=== PATIENT | male | born 1955 | race Asian ===

== ENCOUNTER 2019-05-20 09:22 | Outpatient (CLI) | payer OTHER ==
--- NOTE | 2019-05-20 15:47 | RAD ---
XR Chest Pa Lat STANDARD HISTORY: Preoperative evaluation COMPARISON: None FINDINGS: The heart size is mildly enlarged. A left-sided pacemaker device is seen with unipolar lead in the right ventricle. The lungs are well expanded without focal areas of consolidation, chelsie pulmonary edema, pneumothorax or pleural effusions. IMPRESSION: Cardiomegaly without overt CHF
== END 2019-05-20 09:23 | disposition home or self-care (01) ==
LOC: LABBT 09:22
PROVIDERS: ATTEND Internal Medicine Cardiovascular Disease
DX: Z01.818 Encounter for other preprocedural examination (principal); R94.39 Abnormal result of other cardiovascular function study; I51.7 Cardiomegaly
CPT/HCPCS: 71046; 93005; 93010

== ENCOUNTER → 2019-05-31 | Day surgery (SDC) | payer OTHER ==
[2019-05-20 14:19] VITALS: BMI 22.1
[~2019-05-31] MED LIST: Heparin 10,000 UNITS/1 ML VIAL ONE; Iopamidol 370 76% 100 ML VIAL ONE; Lidocaine 1% (PF) 30 ML VIAL ONE; Midazolam HCl 2 mg/2 ml Vial ONE; Nitroglycerin 100MG/250ML BOT 250 ML ONE; Verapamil 5 MG/2 ML VIAL ONE
--- NOTE | 2019-05-31 12:35 | RAD ---
Exam: Chest one view HISTORY:Preoperative exam. Comparison: 05/20/2019 FINDINGS: Cardiac silhouette:Cardiomegaly. Aorta: Atherosclerosis aorta Pacemaker: Stable single lead left-sided transvenous pacemaker Pulmonary vessels: Normal Costophrenic angles: Clear LUNGS: No masses or consolidation. Pneumothorax: None Osseous abnormalities: None IMPRESSION: 1. Atherosclerosis. 2. No acute cardiopulmonary process. 3. Cardiomegaly without evidence of congestive heart failure.
[2019-05-31 13:27] LABS: AST (SGOT) 25 U/L (5-34); Anion Gap 15 mmol/L (10-20); Bilirubin, Total 1.2 mg/dL (0.2-1.2); Calc. Creatinine Clearance 105 mL/min (70-130); Calcium 8.8 mg/dL (7.8-10.44); Carbon Dioxide 17 mmol/L (23-31); Chloride 111 mmol/L (98-107); Estimated GFR-MDRD Greater than 90; Potassium 4.3 mmol/L (3.5-5.1); Protein, Total 6.6 g/dL (5.8-8.1); Sodium 139 mmol/L (136-145)
[2019-05-31 13:29] LABS: #Eosinphils 0.2 thou/uL (0.0-0.7); #Lymphocytes 1.2 thou/uL (1.20-3.40); #Monocytes 0.4 thou/uL (0.11-0.59); #Neutrophils 2.9 thou/uL (1.40-6.50); %Basophils 0.5 % (0.0-1.0); %Eosinophils 4.4 % (0.0-10.0); %Lymphocytes 24.8 % (21.0-51.0); %Monocytes 8.6 % (0.0-10.0); %Neutrophils 61.7 % (42.0-75.0); Band 10 % (5-11); Eosinophils 1 % (0-10); Hemoglobin 15.3 g/dL (14.0-18.0); Lymphocytes 12 % (21-51); MDiff Complete? YES; Macrocytosis SLIGHT = 6-15 cells (100X) (0-5/hpf); Mean Corpuscular HGB CONC 33.3 g/dL (32.0-36.0); Mean Corpuscular Hemoglobin 31.7 pg (27.0-31.0); Mean Corpuscular Volume 95.2 fL (78.0-98.0); Mean Platelet Volume 9.3 fL (7.4-10.4); Monocytes 8 % (0-10); Neutrophil 55 % (42-75); Platelet Count 132 thou/uL (130-400); Platelet Morphology Comment Appears Adequate; Polychromasia SLIGHT = 2-3 cells (100X) (0-2/hpf); RBC Distribution Width 12.4 % (11.5-14.5); Reactive Lymphocytes 14 % (0-10); Red Blood Cell (RBC) Count 4.83 mill/uL (4.70-6.10); White Blood Cell (WBC) Count 4.6 thou/uL (4.8-10.8)
[2019-05-31 14:04] LABS: Albumin 3.8 g/dL (3.4-4.8); Globulin 2.8 g/dL (2.4-3.5)
[2019-05-31 14:07] LABS: Glucose 100 mg/dL (80-115)
[2019-05-31 14:10] LABS: Alkaline Phosphatase 63 U/L (40-110)
[2019-05-31 14:11] LABS: BUN (Urea Nitrogen) 12 mg/dL (8.4-25.7)
[2019-05-31 14:13] LABS: ALT (SGPT) 24 U/L (8-55)
--- NOTE | 2019-05-31 15:36 | OP ---
DATE OF PROCEDURE: 05/31/2019 INDICATION FOR PROCEDURE: A 64-year-old gentleman with severe cardiomyopathy, status post pacemaker insertion, chronic atrial fibrillation, complaining of chest pain. He was advised to undergo cardiac catheterization to rule out evidence of underlying coronary artery disease. DESCRIPTION OF PROCEDURE: He was taken to cardiac clam bed laborer, where he was prepped and draped in sterile fashion. Using a right radial artery approach, a #5 Russian introducer sheath was placed in the right radial artery using a #4 Russian JL3.5 catheter and also a 4-Russian JR4 catheter. These were used for the procedure. Impression are as follows; mild calcifications noted in the proximal left anterior descending artery, but no evidence of flow-limiting disease in mid section. The left anterior descending artery has plaque formation, but no flow-limiting disease. The left circumflex also is free of any significant flow-limiting disease. He has normal-sized vessels about the 3.0 to 3.5 mm vessels. The right coronary also is a dominant vessel, shows no evidence of stenosis. He has minimal plaque formation. The proximal area to the mid section does have calcifications noted on the radiographic films. The left ventriculogram shows ejection fraction approximately 20% to 25%. The left ventricle appears to be dilated. There was a pacemaker noted in the right ventricle, which appears to be attached to the septum. The patient tolerated the procedure well. There were no difficulties or complications encountered. He was given 1 mg of IV versed for conscious sedation. Throughout the procedure, remained stable. We did use a ultrasonic hand solderer monitor since he does not speak Thai and this went well without any problems. He was monitored throughout the procedure by an independent observer present for heart rate, blood pressure, and O2 saturation and he was given IV Versed. Impression is essentially minimal single-vessel coronary artery disease with calcifications with severe decrease in left ventricular systolic function, but no evidence of flow-limiting coronary artery disease. Job ID: [id number]
== END ==
LOC: CCL 11:11
PROVIDERS: ATTEND Internal Medicine Cardiovascular Disease
PROC: 4A023N7 Measurement of Cardiac Sampling and Pressure, Left Heart, Percutaneous Approach (ICD-10-PCS; principal; 2019-05-31)
PROC: B2111ZZ Fluoroscopy of Multiple Coronary Arteries using Low Osmolar Contrast (ICD-10-PCS; principal; 2019-05-31)
DX: R07.9 Chest pain, unspecified (principal); I48.0 Paroxysmal atrial fibrillation; I42.9 Cardiomyopathy, unspecified; I11.0 Hypertensive heart disease with heart failure; I50.22 Chronic systolic (congestive) heart failure; E78.00 Pure hypercholesterolemia, unspecified; Z95.0 Presence of cardiac pacemaker; Z79.01 Long term (current) use of anticoagulants; Z79.899 Other long term (current) drug therapy; Z87.891 Personal history of nicotine dependence
CPT/HCPCS: 36415; 71045; 80053; 85025; 93458; 99152; 99153; C1769; J1644; J2001; J2250; Q9967

== ENCOUNTER 2019-06-01 09:54 | Emergency (ER) | payer OTHER ==
[2019-06-01] MEDS ORDERED: Iopamidol 370 76% 100 ML VIAL ONE (10:02)
[2019-06-01] MEDS ORDERED: Aspirin Chewable 81 MG TAB ONE (10:55)
[2019-06-01] MEDS ORDERED: Nitroglycerin 2% Ointment 1 INCH/1 GM Packet ONE (10:55)
--- NOTE | 2019-06-01 11:34 | RAD ---
PORTABLE CHEST: HISTORY: Dyspnea, chest pain, and weakness. FINDINGS: Heart size is enlarged. A pacemaker is present. There are atherosclerotic changes of the aorta. Th e lungs are clear of infiltrates. There are no signs of failure. IMPRESSION: Cardiomegaly. POS: TPC
[2019-06-01 11:38] LABS: #Eosinphils 0.1 thou/uL (0.0-0.7); #Lymphocytes 0.9 thou/uL (1.20-3.40); #Monocytes 0.3 thou/uL (0.11-0.59); #Neutrophils 2.7 thou/uL (1.40-6.50); %Eosinophils 2.4 % (0.0-10.0); %Lymphocytes 21.9 % (21.0-51.0); %Monocytes 7.1 % (0.0-10.0); %Neutrophils 67.7 % (42.0-75.0); Hemoglobin 16.1 g/dL (14.0-18.0); Mean Corpuscular Hemoglobin 32.2 pg (27.0-31.0); Mean Corpuscular Volume 97.5 fL (78.0-98.0); Mean Platelet Volume 9.7 fL (7.4-10.4); Platelet Count 128 thou/uL (130-400); RBC Distribution Width 12.6 % (11.5-14.5); White Blood Cell (WBC) Count 3.9 thou/uL (4.8-10.8)
[2019-06-01 12:28] LABS: ALT (SGPT) 31 U/L (8-55); AST (SGOT) 34 U/L (5-34); Albumin 4.1 g/dL (3.4-4.8); Alkaline Phosphatase 67 U/L (40-110); Anion Gap 13 mmol/L (10-20); BUN (Urea Nitrogen) 13 mg/dL (8.4-25.7); Bilirubin, Total 1.2 mg/dL (0.2-1.2); Calc. Creatinine Clearance 0 mL/min (70-130); Calcium 9.1 mg/dL (7.8-10.44); Carbon Dioxide 22 mmol/L (23-31); Chloride 112 mmol/L (98-107); Estimated GFR-MDRD 89; Globulin 2.8 g/dL (2.4-3.5); Glucose 103 mg/dL (80-115); Potassium 4.7 mmol/L (3.5-5.1); Protein, Total 6.9 g/dL (5.8-8.1); Sodium 142 mmol/L (136-145)
--- NOTE | 2019-06-01 14:04 | CT ---
Exam: CT angiogram of the chest HISTORY: Chest pain. Left-sided chest tightness. Shortness of breath. Weakness. COMPARISON: None TECHNIQUE: CT angiogram of the chest is performed in the axial plane. Three-dimensional reformatted i mages are submitted for interpretation FINDINGS: Mediastinum: No mass, lymphadenopathy or hematoma. HEART: Marked cardiomegaly. There is a small amount of pericardial fluid. Reflux of contrast into the inferior vena cava and hepatic veins suggesting right heart failure. Aorta: Limited evaluation due to lack of contrast opacification. Atherosclerosis. No aneurysmal dilat ation. Upper solid abdominal viscera: No abnormality enhancement. Trachea and central bronchi: Patent Pleural spaces: No pleural effusion. Lung parenchyma: Dependent atelectatic changes. No consolidation. Nodules: Right lung: No suspicious masses or nodules Left lung: No suspicious masses or nodules Pneumothorax: None Osseous structures: No lytic or blastic lesions Pulmonary arteries: Adequate contrast opacification pulmonary arterial system to the level of segment al arteries. No filling defect to suggest pulmonary embolism IMPRESSION: 1. Dependent atelectatic changes. No suspicious masses or consolidation 2. Cardiomegaly. Right heart failure. 3. No evidence of pulmonary artery embolism to the level of the segmental arteries.
--- NOTE | 2019-06-06 15:12 | EKG ---
Test Reason : CP Blood Pressure : / mmHG Vent. Rate : 093 BPM Atrial Rate : 069 BPM P-R Int : 000 ms QRS Dur : 102 ms QT Int : 336 ms P-R-T Axes : 000 054 005 degrees QTc Int : 417 ms Atrial fibrillation Abnormal ECG Confirmed by LIBERTY SALAZAR DO ([id number]), medical transcription editor MIHIR RAMÍREZ ([id number]) on 06/06/2019 3:11:56 PM Referred By: TATE Confirmed By:LIBERTY SALAZAR DO
== END 2019-06-01 16:58 | disposition home or self-care (01) ==
LOC: ERS 09:54
DX: R07.89 Other chest pain (principal); I10 Essential (primary) hypertension; E11.9 Type 2 diabetes mellitus without complications; Z87.891 Personal history of nicotine dependence; Z79.01 Long term (current) use of anticoagulants; Z79.899 Other long term (current) drug therapy; Z79.84 Long term (current) use of oral hypoglycemic drugs
CPT/HCPCS: 36415; 71045; 71275; 80053; 83880; 84484; 85025; 85379; 93005; 96360; Q9967

== ENCOUNTER 2019-11-07 22:51 | Emergency (ER) | payer OTHER ==
[2019-11-07 23:24] LABS: #Basophils 0.1 thou/uL (0.0-0.2); #Eosinphils 0.2 thou/uL (0.0-0.7); #Lymphocytes 1.4 thou/uL (1.20-3.40); #Monocytes 0.5 thou/uL (0.11-0.59); %Basophils 1.5 % (0.0-1.0); %Lymphocytes 26.2 % (21.0-51.0); %Monocytes 9.9 % (0.0-10.0); %Neutrophils 58.4 % (42.0-75.0); Hemoglobin 16.5 g/dL (14.0-18.0); Mean Corpuscular HGB CONC 32.6 g/dL (32.0-36.0); Mean Corpuscular Hemoglobin 31.8 pg (27.0-31.0); Mean Corpuscular Volume 97.5 fL (78.0-98.0); Mean Platelet Volume 9.2 fL (7.4-10.4); Platelet Count 160 thou/uL (130-400); RBC Distribution Width 11.8 % (11.5-14.5); White Blood Cell (WBC) Count 5.2 thou/uL (4.8-10.8)
--- NOTE | 2019-11-07 23:27 | RAD ---
EXAM: Single view of the chest HISTORY: Chest pain COMPARISON: 06/01/2019 FINDINGS: Single view of the chest shows an enlarged but stable cardiomediastinal silhouette. Athero sclerotic calcifications are seen in the aorta. The pacemaker is unchanged in position. There is no evidence of consolidation, mass, or pleural effusion. No acute osseous abnormality. IMPRESSION: Stable cardiomegaly
[2019-11-08] MEDS ORDERED: Aspirin Chewable 81 MG TAB ONE (00:11)
[2019-11-08 00:43] LABS: Albumin 3.8 g/dL (3.4-4.8)
[2019-11-08 00:44] LABS: Chloride 109 mmol/L (98-107); Potassium 4.8 mmol/L (3.5-5.1); Sodium 135 mmol/L (136-145)
[2019-11-08 00:45] LABS: Calcium 8.4 mg/dL (7.8-10.44); Glucose 109 mg/dL (80-115)
[2019-11-08 00:46] LABS: Globulin 2.8 g/dL (2.4-3.5); Protein, Total 6.6 g/dL (5.8-8.1)
[2019-11-08 00:47] LABS: Anion Gap 12 mmol/L (10-20); Bilirubin, Total 0.8 mg/dL (0.2-1.2); Carbon Dioxide 19 mmol/L (23-31)
[2019-11-08 00:48] LABS: Alkaline Phosphatase 62 U/L (40-110)
[2019-11-08 00:49] LABS: BUN (Urea Nitrogen) 14 mg/dL (8.4-25.7); Calc. Creatinine Clearance 0 mL/min (70-130); Estimated GFR-MDRD 90
[2019-11-08 00:51] LABS: ALT (SGPT) 26 U/L (8-55); AST (SGOT) 25 U/L (5-34)
--- NOTE | 2019-11-09 11:56 | EKG ---
Test Reason : Blood Pressure : / mmHG Vent. Rate : 076 BPM Atrial Rate : 069 BPM P-R Int : 000 ms QRS Dur : 090 ms QT Int : 364 ms P-R-T Axes : 000 038 024 degrees QTc Int : 409 ms Atrial fibrillation Nonspecific T wave abnormality , probably digitalis effect Abnormal ECG Confirmed by PAWEL CROCKER ([id number]), greeting card editor CRYSTAL FORD ([id number]) on 11/09/2019 11:56:01 AM Referred By: Confirmed By:PAWEL CROCKER
== END 2019-11-08 01:04 | disposition home or self-care (01) ==
LOC: ERS 22:51
DX: I48.91 Unspecified atrial fibrillation (principal); E11.9 Type 2 diabetes mellitus without complications; I10 Essential (primary) hypertension; E78.5 Hyperlipidemia, unspecified; Z87.891 Personal history of nicotine dependence; Z79.01 Long term (current) use of anticoagulants; Z79.84 Long term (current) use of oral hypoglycemic drugs; Z79.899 Other long term (current) drug therapy
CPT/HCPCS: 36415; 71045; 80053; 83880; 84484; 85025; 93005

== ENCOUNTER 2020-02-04 22:19 | Observation (INO) | payer OTHER ==
--- NOTE | 2020-02-04 23:12 | RAD ---
Portable frontal chest radiograph: 02/04/2020 Comparison: 11/07/2019 HISTORY: Fatigue with chest pain FINDINGS: Stable prominence of the cardiac silhouette. Stable single lead transvenous pacing device i nserted via a left subclavian approach. No focal consolidation or alveolar edema. IMPRESSION: No acute findings-stable appearance of the chest.
[2020-02-04 23:17] LABS: #Basophils 0.1 thou/uL (0.0-0.2); #Eosinphils 0.2 thou/uL (0.0-0.7); #Lymphocytes 1.3 thou/uL (1.20-3.40); #Monocytes 0.4 thou/uL (0.11-0.59); #Neutrophils 2.4 thou/uL (1.40-6.50); %Basophils 1.8 % (0.0-1.0); %Eosinophils 3.8 % (0.0-10.0); %Lymphocytes 30.3 % (21.0-51.0); %Monocytes 8.8 % (0.0-10.0); %Neutrophils 55.3 % (42.0-75.0); Hemoglobin 15.3 g/dL (14.0-18.0); Mean Corpuscular HGB CONC 32.4 g/dL (32.0-36.0); Mean Corpuscular Hemoglobin 31.1 pg (27.0-31.0); Mean Corpuscular Volume 96.1 fL (78.0-98.0); Mean Platelet Volume 8.6 fL (7.4-10.4); Platelet Count 182 thou/uL (130-400); RBC Distribution Width 11.9 % (11.5-14.5); Red Blood Cell (RBC) Count 4.93 mill/uL (4.70-6.10); White Blood Cell (WBC) Count 4.3 thou/uL (4.8-10.8)
[2020-02-04 23:41] LABS: ALT (SGPT) 29 U/L (8-55); AST (SGOT) 23 U/L (5-34); Albumin 4.1 g/dL (3.4-4.8); Alkaline Phosphatase 71 U/L (40-110); Anion Gap 13 mmol/L (10-20); BUN (Urea Nitrogen) 12 mg/dL (8.4-25.7); Bilirubin, Total 0.7 mg/dL (0.2-1.2); Calc. Creatinine Clearance 0 mL/min (70-130); Calcium 8.8 mg/dL (7.8-10.44); Carbon Dioxide 25 mmol/L (23-31); Chloride 107 mmol/L (98-107); Estimated GFR-MDRD 86; Globulin 2.9 g/dL (2.4-3.5); Glucose 109 mg/dL (80-115); Potassium 4.2 mmol/L (3.5-5.1); Sodium 141 mmol/L (136-145)
[2020-02-04] MEDS ORDERED: Acetaminophen 325 MG TAB ONE (23:47)
[2020-02-04] MEDS ORDERED: Aspirin Chewable 81 MG TAB ONE (23:47)
[2020-02-04] MEDS ORDERED: Nitroglycerin 2% Ointment 1 INCH/1 GM Packet ONE (23:47)
[2020-02-05] MEDS ORDERED: Senokot S 8.6-50 MG TAB PO PRN (00:36)
[2020-02-05] MEDS ORDERED: Acetaminophen 325 MG TAB PO PRN (00:36)
--- NOTE | 2020-02-05 01:44 | PDOC.HHP ---
Hospitalist HPI - History of Present Illness Left sided chest pain and generalized weakness for 24 hours History of Present Illness: 64M presents to the ED for left sided intermittent chest pain and generalized weakness for over 24 hours. Reports symptoms started after taking his new medication, digoxin, which Dr. Bernal started him on in the last week. He denies calling Dr. Bernal and family at the bedside reports they just broke him to the ED for his symptoms. He denies other symptoms, and he denies having them currently. Patient had a cardiac cath in May 2019 which showed an enlarged ventricles but mild plaque in the mid LAD. Patient reports he is taking him medication as prescribed. Patient has a pacemaker which was not interrogated in the ED. First troponin was negative. He will be admitted for serial troponins and cardiology consult. ED Course: ED: WBC 4.3, troponin: negative; chemistry unremarkable Hospitalist ROS - Review of Systems Constitutional: denies: fever, chills, sweats, weakness, malaise, other Eyes: denies: pain, vision change, conjunctivae inflammation, eyelid inflammation, redness, other ENT: denies: ear pain, ear discharge, nose pain, nose discharge, nose congestion, mouth pain, mouth swelling, throat pain, throat swelling, other Respiratory: reports: shortness of breath Cardiovascular: reports: chest pain Gastrointestinal: denies: nausea, vomiting, abdominal pain, diarrhea, constipation, melena, hematochezia, other Genitourinary: denies: dysuria, frequency, incontinence, hematuria, retention, other Musculoskeletal: denies: neck pain, shoulder pain, arm pain, back pain, hand pain, leg pain, foot pain, other Neurological: reports: weakness - Medication Medications: Eliquis MonFeb 04, 2020 23:54 tablet : Strength - 5 mg : ORAL Patient Dose: 5 mg Oral 2 times a day. Lasix oral MonFeb 04, 2020:54 tablet : Strength - 40 mg : ORAL Patient Dose: 40 mg Oral once a day.every other day. atorvastatin MonFeb 04, 2020:54 tablet : Strength - 40 mg : ORAL Patient Dose: 40 mg Oral once a day. metFORMIN MonFeb 04, 2020 23:54 tablet : Strength - 850 mg : ORAL Patient Dose: 500 mg Oral once a day. tamsulosin MonFeb 04, 2020 23:54 capsule : Strength - 0.4 mg : ORAL Patient Dose: 0.4 mg Oral once a day. Entresto MonFeb 04, 2020 23:54 tablet : Strength - 24 mg-26 mg : ORAL Patient Dose: 1/2 tab(s) Oral 2 times a day. carvedilol MonFeb 04, 2020 23:54 tablet : Strength - 3.125 mg : ORAL Patient Dose: 3.125 mg Oral 2 times a day. digoxin oral MonFeb 04, 2020 23:54 tablet : Strength - 250 mcg : ORAL Patient Dose: 1 tab(s) Oral once a day (in the evening). Ergocal MonFeb 04, 2020 23:56 capsule : Strength - 2,500 unit : ORAL Patient Dose: 1.25 mg Oral once a week. Hospitalist History - Past Medical History Source: patient Cardiac: reports: AFIB, CAD, CHF, HTN, Hyperlipidemia, Other (ventricular enlargement) Pulmonary: reports: hypertension Endocrine: reports: Diabetes - Past Surgical History Past Surgical History: reports: Other (pacemaker placement) - Family History Family History: reports: no pertinent history - Social History Smoking Status: Former smoker Alcohol: reports: None Drugs: reports: none Living Situation: With Family Activity level: independent ambulation - Exam General Appearance: NAD, awake alert Eye: PERRL, anicteric sclera ENT: normocephalic atraumatic, moist mucosa Neck: supple, no JVD Heart: normal peripheral pulses, irregular Respiratory: CTAB, normal chest expansion Gastrointestinal: soft, non-tender Extremities: no edema Skin: normal turgor Neurological: cranial nerve grossly intact Musculoskeletal: normal tone Psychiatric: normal affect, A&O x 3 Hospitalist Results - Labs Result Diagrams: 02/04/20 22:57 02/04/20 22:57 Lab results: WBC 4.3 thou/uL (4.8-10.8) L 02/04/20 22:57 Hgb 15.3 g/dL (14.0-18.0) 02/04/20 22:57 Hct 47.4 % (42.0-52.0) 02/04/20 22:57 MCV 96.1 fL (78.0-98.0) 02/04/20 22:57 Plt Count 182 thou/uL (130-400) 02/04/20 22:57 Neutrophils % 55.3 % (42.0-75.0) 02/04/20 22:57 Sodium 141 mmol/L (136-145) 02/04/20 22:57 Potassium 4.2 mmol/L (3.5-5.1) 02/04/20 22:57 Chloride 107 mmol/L (98-107) 02/04/20 22:57 Carbon Dioxide 25 mmol/L (23-31) 02/04/20 22:57 BUN 12 mg/dL (8.4-25.7) 02/04/20 22:57 Creatinine 0.89 mg/dL (0.7-1.3) 02/04/20 22:57 Glucose 109 mg/dL (80-115) 02/04/20 22:57 Calcium 8.8 mg/dL (7.8-10.44) 02/04/20 22:57 Total Bilirubin 0.7 mg/dL (0.2-1.2) 02/04/20 22:57 AST 23 U/L (5-34) 02/04/20 22:57 ALT 29 U/L (8-55) 02/04/20 22:57 Alkaline Phosphatase 71 U/L (40-110) 02/04/20 22:57 Troponin I Less than 0.010 ng/mL (< 0.028) 02/04/20 22:57 Serum Total Protein 7.0 g/dL (5.8-8.1) 02/04/20 22:57 Albumin 4.1 g/dL (3.4-4.8) 02/04/20 22:57 - EKG Interpretation EKbpm, a fib with rate control, ST segments, t waves normal Hospitalist H&P A/P - Problem (1) Hypertension Code(s): I10 - ESSENTIAL (PRIMARY) HYPERTENSION Status: Chronic (2) Chest pain Code(s): R07.9 - CHEST PAIN, UNSPECIFIED Status: Acute (3) Afib Code(s): I48.91 - UNSPECIFIED ATRIAL FIBRILLATION Status: Chronic (4) Hyperlipemia Code(s): E78.5 - HYPERLIPIDEMIA, UNSPECIFIED Status: Chronic (5) Diabetes Code(s): E11.9 - TYPE 2 DIABETES MELLITUS WITHOUT COMPLICATIONS Status: Chronic (6) Pacemaker Code(s): Z95.0 - PRESENCE OF CARDIAC PACEMAKER Status: Chronic - Plan Plan: # Chest pain Cardiac Cath in 3/20 with mild plaque in LAD Serial troponins Continue Eliquis and Entresto Cardiology consult Pacemaker interrogation Digoxin level Restart home meds HTN/HLD/AFIB: home meds Diabetes: ACHS accuchecks; SS for coverage DVT prevention: on eliquis, will continue PUD prevention with pepcid 20mg BID
[2020-02-05] MEDS ORDERED: HumaLOG 300 UNITS/3 ML VIAL SC PRN ×2 (02:01)
[2020-02-05] MEDS ORDERED: Dextrose 50% Abboject 50 ML SYRINGE SLOW IVP PRN (02:01)
[2020-02-05] MEDS ORDERED: Dextrose 5% in Water 1,000 ML IV PRN (02:01)
[2020-02-05 02:37] VITALS: BMI 20.9
[2020-02-05 04:28] LABS: Digoxin 0.55 ng/mL (0.8-2.0)
[2020-02-05 05:21] LABS: Troponin I 0.016 ng/mL (< 0.028)
[2020-02-05 08:32] LABS: #Basophils 0.1 thou/uL (0.0-0.2); #Eosinphils 0.2 thou/uL (0.0-0.7); #Lymphocytes 1.6 thou/uL (1.20-3.40); #Monocytes 0.4 thou/uL (0.11-0.59); #Neutrophils 2.4 thou/uL (1.40-6.50); %Basophils 1.1 % (0.0-1.0); %Lymphocytes 33.9 % (21.0-51.0); %Monocytes 8.2 % (0.0-10.0); %Neutrophils 52.8 % (42.0-75.0); Hemoglobin 16.5 g/dL (14.0-18.0); Mean Corpuscular Hemoglobin 32.2 pg (27.0-31.0); Mean Corpuscular Volume 97.6 fL (78.0-98.0); Mean Platelet Volume 9.1 fL (7.4-10.4); Platelet Count 140 thou/uL (130-400); RBC Distribution Width 11.8 % (11.5-14.5); Red Blood Cell (RBC) Count 5.13 mill/uL (4.70-6.10); White Blood Cell (WBC) Count 4.6 thou/uL (4.8-10.8)
[2020-02-05 08:49] LABS: ALT (SGPT) 28 U/L (8-55); AST (SGOT) 21 U/L (5-34); Albumin 3.9 g/dL (3.4-4.8); Alkaline Phosphatase 72 U/L (40-110); Anion Gap 15 mmol/L (10-20); BUN (Urea Nitrogen) 10 mg/dL (8.4-25.7); Calc. Creatinine Clearance 86 mL/min (70-130); Calcium 8.7 mg/dL (7.8-10.44); Carbon Dioxide 22 mmol/L (23-31); Chloride 109 mmol/L (98-107); Estimated GFR-MDRD Greater than 90; Globulin 2.8 g/dL (2.4-3.5); Glucose 93 mg/dL (80-115); Protein, Total 6.7 g/dL (5.8-8.1); Sodium 142 mmol/L (136-145)
[2020-02-05 08:54] LABS: Troponin I 0.027 ng/mL (< 0.028)
[2020-02-05] MEDS ORDERED: Apixaban 5 MG TAB PO SCH (09:00)
[2020-02-05] MEDS ORDERED: Famotidine 20 MG TAB PO SCH (09:00)
[2020-02-05] MEDS ORDERED: Atorvastatin Calcium 40 MG TAB PO SCH (09:00)
[2020-02-05] MEDS ORDERED: FLU VACC QS2020-21(6MOS UP)/PF 60 MCG/0.5 ML SYRINGE IM ONE (09:00)
[2020-02-05 09:11] LABS: SARS-CoV-2 MS2 Positive; SARS-CoV-2 N Gene Negative; SARS-CoV-2 S Gene Negative; SARS-CoV-2 by NAA Not Detected (NotDetected); SARS-CoV-2 orf1ab Negative
[2020-02-05] MEDS ORDERED: Nitroglycerin 0.4 MG TAB (25 Tab Bottle) SL PRN (15:06)
[2020-02-05] MEDS ORDERED: Aspirin 81 mg Enteric Coated Tablet PO SCH (15:15)
--- NOTE | 2020-02-05 17:08 | PDOC.DS.DS ---
Provider - Provider Date of Admission: 02/04/20 23:54 Date of Discharge: 02/05/20 Admitting Provider: Scott Merino Consultations: Cardiology (Dr. Fierro), Gastroentrology (Dr. Snow) Primary Care Physician: Chente Dowling Course - Hospital Course Hospital Course: Discharge Diagnoses: 1. Chest pain possibly secondary to GERD vs angina 2. Mild CAD 3. Hypertension Brief HPI: This is a 64-year-old male who presented to the emergency room with chest pain. Patient reported that he has been having chest pain for the past 3 months. He states that he is able to exercise without chest pain but whenever he finishes exercise he will usually get chest pain that would last about 15 seconds. However the last 2 days his chest pain lasted an hour. His chest pain was on the left side, squeezing sensation, nonradiating to his arm or neck. He also reported associated shortness of breath and a strange sensation in his head so he came to the emergency room for further work-up. EKG showed atrial fibrill ation Hospital Course: Chest pain: possibly GERD vs angina. - Patient had 3 sets of troponins which were normal. Cardiology was consulted. The patient had a catheterization earlier this year which showed insignificant CAD. GI was consulted and recommended starting Protonix. They did not recommend any EGD. Patient ambulated to the bathroom without any chest pain on the day of discharge. He will be discharged with aspirin in the event that he may have some angina. He should take nitroglycerin as needed for chest pain. He will also be discharged with Protonix. He should follow-up with his primary care doctor in a week. Of note, a Lithuanian bag patcher was used during the encounter. Atrial fibrillation: Patient will be continued on his Eliquis. He was recently started on digoxin 2 days ago. This is a chronic problem and not new onset Pertinent Studies: Chest X ray 02/03:no acute findings - Labs Lab Results: 02/05/20 08:05 02/05/20 08:05 Abnormal Lab Results - Last 48 hrs 02/04/20 22:57: WBC 4.3 L, MCH 31.1 H, Basophils % 1.8 H 02/05/20 01:34: Digoxin 0.55 L 02/05/20 08:05: Chloride 109 H, Carbon Dioxide 22 L 02/05/20 08:05: WBC 4.6 L, MCH 32.2 H, Basophils % 1.1 H - Physical Exam Vitals: Vital Signs (12 hours) Temp Pulse Resp BP Pulse Ox 02/05/20 12:20 98.2 F 81 16 115/73 96 02/05/20 07:40 97.3 F L 62 16 127/84 97 Weight Weight 142 lb Physical Exam: The patient was seen and examined on the day of discharge. General: patient alert, awake, oriented times three CV: RRR, no murmurs, rubs, gallops Lungs: CTAB Abdomen: +BS, soft, nontender, nondistended Extremities: no edema Problem - Discharge Plan Plan of Treatment: With her PCP and clipping marker in a week - Time spent with Patient (mins): 35 Plan - Discharge Medications Prescriptions: Aspirin [Ecotrin Low Strength] 81 mg PO DAILY #30 tab Pantoprazole [Protonix] 40 mg PO DAILY #30 tab Home Medications: Medication Instructions Recorded Confirmed Type Apixaban [Eliquis] 1 tab PO BID 05/20/19 02/05/20 History Atorvastatin Calcium 1 tab PO DAILY 05/20/19 02/05/20 History Cholecalciferol (Vitamin D3) 25 mcg PO DAILY 05/20/19 02/05/20 History [Vitamin D] Furosemide 40 mg PO ASDIR 05/20/19 02/05/20 History Nitroglycerin [Nitrostat] 0.4 mg SL Q5MIN PRN 05/20/19 02/05/20 History Potassium Chloride 1 tab PO DAILY 05/20/19 02/05/20 History Sacubitril/Valsartan [Entresto 24 1 tab PO BID 05/20/19 02/05/20 History mg-26 mg Tablet] Tamsulosin HCl [Flomax] 0.4 mg PO DAILY 05/20/19 02/05/20 History metFORMIN [Glucophage] 500 mg PO QAM-WM 05/20/19 02/05/20 History Aspirin [Ecotrin Low Strength] 81 mg PO DAILY #30 tab 02/05/20 Rx Digoxin [Lanoxin] 0.25 mg PO DAILY 02/05/20 02/05/20 History Pantoprazole [Protonix] 40 mg PO DAILY #30 tab 02/05/20 Rx Allergies: No Known Allergies Allergy (Verified 02/05/20 03:28) - Discharge Instructions Activity:: Activity as Tolerated Nourishment:: Heart Healthy Diet - Follow up Plan Referrals: Chente Dowling MD [Primary Care Provider] - Disposition: HOME Quality - Care Measures CORE MEASURES:: N/A
--- NOTE | 2020-02-05 17:49 | CON ---
DATE OF CONSULTATION: HISTORY OF PRESENT ILLNESS: Pio Shea is a 64-year-old Ukrainian male, who has been followed by Dr. Bernal since March 2019. He had a pacemaker placed in 2009 and had been seen numerous times in emergency room for chest pain in [place] and [place] and also at the [facility]. He moved to this area from [place] last year. In May 2019, he underwent Lexiscan Cardiolite testing, which revealed ejection fraction of 39%. There was ischemia in the anterior apical region. He underwent cardiac catheterization by Dr. Bernal, which revealed an ejection fraction of approximately 20% and he had a calcification in the LAD and in the proximal right coronary artery, but no significant stenosis. He was placed on a LifeVest as well as appropriate heart failure medication and a repeat echocardiogram in October 2019 revealed ejection fraction of 40% to 45% with biatrial enlargement, moderate mitral regurgitation, and severe tricuspid regurgitation. He was most recently seen in the office on January 28, 2020, and EKG showed a resting heart rate of 125 per minute. His blood pressure was 102/68, and the carvedilol was not further increased, but he was placed on digoxin 0.25 daily. He now presents complaining of 1 hour of mild left-sided chest discomfort. The pain is not pleuritic in nature. He denies any significant shortness of breath. Translation is provided by a program that he has on his phone that translates from [place] to Ukrainian and Ukrainian to [place]. PAST MEDICAL HISTORY: Chronic atrial fibrillation, mild coronary artery disease, nonischemic cardiomyopathy with most recent ejection fraction of 40% to 45%, hypertension, diabetes, and hyperlipidemia. PAST SURGICAL HISTORY: Pacemaker insertion. MEDICATIONS: 1. Eliquis 5 mg b.i.d. 2. Atorvastatin 40 daily. 3. Flomax 0.4 mg daily. 4. Metformin 500 mg daily. 5. Nitroglycerin p.r.n. 6. Carvedilol 3.125 daily. 7. Entresto / b.i.d. 8. Digoxin 0.25 daily. ALLERGIES: NONE. SOCIAL HISTORY: He smoked in the past. PHYSICAL EXAMINATION: VITAL SIGNS: Blood pressure 140/92 and pulse of 62. HEENT: PERRL. NECK: Supple. CHEST: Clear. CARDIAC: S1 and S2 normal without any S3, S4, or murmurs. ABDOMEN: Normal bowel sounds without tenderness or organomegaly. EXTREMITIES: Revealed no clubbing, cyanosis, or edema. NEUROLOGIC: Grossly intact. SKIN: Warm and dry. LABORATORY DATA: EKG revealed atrial fibrillation without any acute changes. Digoxin level 0.55, which is low. Hemoglobin 16.5, hematocrit 50.0, white count 4600, and platelets 140,000. Sodium 142, potassium 4.0, chloride 109, carbon dioxide 22, BUN 10, and creatinine 0.80. Troponin I is normal x3. IMPRESSION: 1. Probable noncardiac chest pain. He had a cardiac catheterization eight months ago without significant disease and now had 1 hour of continual chest discomfort, but totally normal cardiac enzymes. Also, he had a false-positive Cardiolite prior to his catheterization, so I do not feel that a Cardiolite testing would be of any value. 2. Nonischemic cardiomyopathy with ejection fraction of 20% at time of catheterization in May 2019. He wore a LifeVest and with appropriate medications, his ejection fraction improved to 40% to 45%. 3. Status post pacemaker placement in 2009. This is a single-chamber device. 4. Hypertension. 5. Hyperlipidemia. 6. Diabetes. 7. History of cerebrovascular accident in 2012. PLAN: Digoxin will be restarted. I do not feel any further cardiac evaluation is warranted. Another evaluation for the cause of his chest pain should be entertained. Job ID: [id number]
[2020-02-05 18:52] VITALS: BP 148/77; TEMP 97.8
--- NOTE | 2020-02-06 06:59 | CON ---
DATE OF CONSULTATION: 02/05/2020 REASON FOR CONSULTATION: Chest pain and negative cardiac workup. HISTORY OF PRESENT ILLNESS: Pio Shea is a 64-year-old Turkmen male with chest pain, which started yesterday. The patient has history of coronary artery disease, status post stent placement in the past. as his recent cardiogram showed very minimal occlusion. The patient had acute chest pain and pain over the epigastric area. The patient came to the ER and Cardiology deferred this is noncardiac. The patient's pain is better today, but it was a lot worse yesterday. The pain is worse with walking around. Deep breathing does not make it worse. He had no similar episodes in the past. No history of recent trauma. CK and cardiac enzymes are negative. I was asked to see the patient because of his chest pain. The patient was interviewed along with the ear machine operator service. The patient denies abdominal pain, heartburn, or indigestion. Pain in the precordial area. There are no other GI symptoms recorded. No abdominal pain. No nausea or vomiting. Bowels are regular. No hematochezia or melena. He had no similar episodes in the past. He had no fever, coughing. The pain is more like a soreness over the precordial area. He has no heartburn. No dysphagia or odynophagia. No relevant symptoms. ALLERGIES: NONE. SOCIAL HISTORY: The patient does not smoke or drink alcohol. MEDICAL ILLNESSES: 1. Status post pacemaker insertion. 2. Recent cardiac cath showing mild coronary artery disease and the chest pain is felt to be noncardiac at the present time. 3. Hypertension. 4. Atrial fibrillation. 5. Diabetes mellitus. MEDICATIONS: List reviewed, which include; 1. Atorvastatin. 2. Metformin. 3. Tamsulosin. 4. Entresto. 5. Carvedilol. 6. Digoxin. 7. Ergocalciferol. 8. Eliquis 5 mg twice a day. 9. Lasix 40 mg once a day. SURGERIES: 1. Pacemaker implant. 2. History of cardiac cath, minimal coronary artery disease and no other major surgeries. REVIEW OF SYSTEMS: A 10-point systems are totally nonrelevant. PHYSICAL EXAMINATION: GENERAL: He is thin built, appears very comfortable. He is awake, alert, and oriented. No distress. VITAL SIGNS: Stable. Afebrile, pulse is 81, and blood pressure 115/73. HEENT: Conjunctivae are clear. CARDIOVASCULAR SYSTEM: Normal heart sounds. LUNGS: Clear to auscultation. ABDOMEN: Soft. No organomegaly. No tenderness. No masses. He has mild minimal chest wall tenderness over the precordial area. EXTREMITIES: Reveal no edema. LABORATORY DATA: WBC 4600, hemoglobin 16.5, hematocrit 50, MCV 97.6, platelet count is 140,000, polymorphs 52, lymphocytes 33, and monocytes 8. Chemistry panel normal lytes. BUN is 10, creatinine 0.80, glucose is 152, calcium 8.7, bilirubin , AST 21, ALT 28, and alkaline phosphatase 72. Troponin 0.027. Albumin 3.9. CLINICAL IMPRESSION: 1. A 64-year-old Turkmen male with chest pain, which appears noncardiac . The pain is possibly musculoskeletal. I do not think he has any GI symptoms to warrant any GI workup. 2. Hypertension. 3. Diabetes mellitus. 4. Prostatic hypertrophy. 5. Status post pacemaker implant. RECOMMENDATION: May try the patient on pantoprazole 40 once a day and can go home on pantoprazole. The patient will see his primary care doctor in the future if abdominal pain persists, he will come back to see me. Job ID: [id number]
[2020-02-06] MEDS ORDERED: Aspirin 81 mg Enteric Coated Tablet PO SCH (09:00)
[2020-02-06] MEDS ORDERED: Digoxin 0.25 MG TAB PO SCH (09:00)
== END 2020-02-05 18:35 | disposition home or self-care (01) ==
LOC: ERS 22:19 → 2NO 23:54
PROVIDERS: ADMIT Internal Medicine; ATTEND Internal Medicine
DX: R07.89 Other chest pain (principal); I25.10 Atherosclerotic heart disease of native coronary artery without angina pectoris; I11.0 Hypertensive heart disease with heart failure; I50.9 Heart failure, unspecified; E11.9 Type 2 diabetes mellitus without complications; E78.5 Hyperlipidemia, unspecified; I48.20 Chronic atrial fibrillation, unspecified; I42.8 Other cardiomyopathies; Z79.01 Long term (current) use of anticoagulants; Z79.84 Long term (current) use of oral hypoglycemic drugs; Z79.899 Other long term (current) drug therapy; Z87.891 Personal history of nicotine dependence; Z95.0 Presence of cardiac pacemaker; Z86.73 Personal history of transient ischemic attack (TIA), and cerebral infarction without residual deficits; Z20.828 Contact with and (suspected) exposure to other viral communicable diseases
CPT/HCPCS: 36415; 36416; 71045; 80053; 80162; 84484; 85025; 87635; 90471; 90662; 93005; G0008; G0378; U0003

== ENCOUNTER 2020-03-05 17:47 | Inpatient (IN) | payer OTHER ==
[2020-03-05 18:47] LABS: #Eosinphils 0.1 thou/uL (0.0-0.7); #Lymphocytes 1.3 thou/uL (1.20-3.40); #Monocytes 0.5 thou/uL (0.11-0.59); #Neutrophils 3.3 thou/uL (1.40-6.50); %Basophils 0.9 % (0.0-1.0); %Lymphocytes 24.7 % (21.0-51.0); %Monocytes 8.8 % (0.0-10.0); %Neutrophils 63.6 % (42.0-75.0); Mean Corpuscular HGB CONC 32.7 g/dL (32.0-36.0); Mean Corpuscular Hemoglobin 30.9 pg (27.0-31.0); Mean Corpuscular Volume 94.4 fL (78.0-98.0); Mean Platelet Volume 8.5 fL (7.4-10.4); Platelet Count 158 thou/uL (130-400); RBC Distribution Width 11.5 % (11.5-14.5); Red Blood Cell (RBC) Count 5.19 mill/uL (4.70-6.10); White Blood Cell (WBC) Count 5.1 thou/uL (4.8-10.8)
--- NOTE | 2020-03-05 18:59 | CT ---
CT BRAIN NONCONTRAST: DATE: 03/05/2020 HISTORY: 64-year-old male with dizziness and headache FINDINGS: There is no evidence of acute intra-axial or extra-axial hemorrhage. There is no midline shift or any other mass effect. There is no extra-axial fluid collection. There is no evidence of obstructive hydrocephalus. Calvarium is intact. IMPRESSION: No acute intracranial findings.
[2020-03-05 19:08] LABS: ALT (SGPT) 34 U/L (8-55); AST (SGOT) 28 U/L (5-34); Albumin 4.3 g/dL (3.4-4.8); Alkaline Phosphatase 80 U/L (40-110); Anion Gap 14 mmol/L (10-20); BUN (Urea Nitrogen) 9 mg/dL (8.4-25.7); Bilirubin, Total 0.9 mg/dL (0.2-1.2); CK (CPK) 100 U/L (30-200); Calc. Creatinine Clearance 0 mL/min (70-130); Calcium 9.3 mg/dL (7.8-10.44); Carbon Dioxide 27 mmol/L (23-31); Chloride 102 mmol/L (98-107); Globulin 3.1 g/dL (2.4-3.5); Glucose 132 mg/dL (80-115); Potassium 4.2 mmol/L (3.5-5.1); Protein, Total 7.4 g/dL (5.8-8.1); Sodium 139 mmol/L (136-145)
--- NOTE | 2020-03-05 19:14 | RAD ---
RADIOGRAPH CHEST 1 VIEW: DATE: 03/05/2020 HISTORY: 64-year-old male with chest pain and dyspnea FINDINGS: There is cardiomegaly. There is no evidence of airspace density, pulmonary edema, or pneumothorax. Th e lateral costophrenic angles are not effaced. No pulmonary venous engorgement. Single lead permanent pacemaker with left-sided generator. IMPRESSION: 1) No acute pulmonary findings. 2) cardiomegaly without congestive heart failure.
[2020-03-05] MEDS ORDERED: Acetaminophen 500 MG TAB ONE (19:44)
[2020-03-05] MEDS ORDERED: Aspirin Chewable 81 MG TAB ONE (21:22)
[2020-03-05] MEDS ORDERED: Dextrose 5% in Water 1,000 ML IV PRN (21:43)
[2020-03-05] MEDS ORDERED: Dextrose 50% Abboject 50 ML SYRINGE SLOW IVP PRN (21:43)
--- NOTE | 2020-03-05 21:47 | PDOC.HHP ---
Hospitalist HPI - History of Present Illness chest pain History of Present Illness: 4-year-old male patient with a history of diabetes mellitus, carotid artery disease with stent, atrial fibrillation on Eliquis, CHF who presents with intermittent chest pain and headaches about an hour prior to arrival. Pain is intermittent above-intensity nonradiating and moved from the left to the right side of his chest. Pain is dull, nonexertional. He denies any associated shortness of breath or palpitations. He notes mild worsening of swelling of his feet bilaterally. At the time of my evaluation patient noted this chest pain prior to stop. Headaches have also improved and very mild. Of note he was admitted and discharged on 02/05/2020 on account of chest pain however was deemed to be noncardiac. He was evaluated by GI and placed on Protonix. He had cardiac catheterization on 06/03/2019 EF of about 20%, however is not clear whether he had stent placement then. At presentation blood pressure was 157/83, pulse was 51, temperature, respiratory rate 15 and saturating 95% on room air. CBC and BMP were essentially within normal limits. BNP was slightly elevated at 125. Initial troponin was within normal limits. D-dimer was 0.27. Chest x-ray noted no acute event besides cardiomegaly which was stable. EKG showed paced rhythm with no concerning S T-segment T wave changes. CT scan of his head showed no acute intracranial events. He was given 324 mg aspirin and Tylenol. His pacemaker was interrogated which noted episodes of severe tachycardia to the 180s and bradycardia. Heart rate monitored in the ED had bradycardia at times in the 30s. This was concerningcalled for admission and possible EP evaluation. Hospitalist ROS - Review of Systems Constitutional: reports: weakness. denies: fever, chills, sweats, malaise Respiratory: reports: cough, dry, shortness of breath, SOB with excertion. denies: hemoptysis Cardiovascular: reports: chest pain, edema. denies: palpitations, orthopnea, paroxysmal noc. dyspnea Gastrointestinal: denies: nausea, vomiting, abdominal pain Genitourinary: denies: dysuria, frequency, incontinence Musculoskeletal: denies: neck pain, shoulder pain, arm pain Neurological: reports: other (Increasing forgetfulness.). denies: weakness, numbness, incoordination All other systems reviewed; all pertinent +/- noted in HPI/Subj - Medication Medications: Medications: Can refer to ambulatory drug list. Allergies: No known drug allergies Hospitalist History - Past Medical History Cardiac: reports: AFIB, CAD, CHF Endocrine: reports: Diabetes - Past Surgical History Past Surgical History: reports: Other (pacemaker placement) Other Surgical History: Pacemaker placement. - Family History Family History: reports: no pertinent history - Social History Smoking Status: Former smoker Alcohol: reports: None Drugs: reports: none Living Situation: With Family - Exam General Appearance: awake alert General - other findings: Not in acute distress. Eye: PERRL, anicteric sclera Neck: supple, symmetric, no JVD Heart: RRR, no murmur, no gallops, no rubs Respiratory: CTAB, no wheezes, no rales, no ronchi Gastrointestinal: soft, non-tender, non-distended, normal bowel sounds, no palpable masses Extremities: no cyanosis, no clubbing, 1+ LE edema Neurological: cranial nerve grossly intact, normal sensation to touch, no focal deficits Psychiatric: normal affect, normal behavior, A&O x 3 Hospitalist Results - Labs Result Diagrams: 03/05/20 18:37 03/05/20 18:37 Lab results: WBC 5.1 thou/uL (4.8-10.8) 03/05/20 18:37 Hgb 16.0 g/dL (14.0-18.0) 03/05/20 18:37 Hct 49.0 % (42.0-52.0) 03/05/20 18:37 MCV 94.4 fL (78.0-98.0) 03/05/20 18:37 Plt Count 158 thou/uL (130-400) 03/05/20 18:37 Neutrophils % 63.6 % (42.0-75.0) 03/05/20 18:37 Sodium 139 mmol/L (136-145) 03/05/20 18:37 Potassium 4.2 mmol/L (3.5-5.1) 03/05/20 18:37 Chloride 102 mmol/L (98-107) 03/05/20 18:37 Carbon Dioxide 27 mmol/L (23-31) 03/05/20 18:37 BUN 9 mg/dL (8.4-25.7) 03/05/20 18:37 Creatinine 0.98 mg/dL (0.7-1.3) 03/05/20 18:37 Glucose 132 mg/dL (80-115) H 03/05/20 18:37 Calcium 9.3 mg/dL (7.8-10.44) 03/05/20 18:37 Total Bilirubin 0.9 mg/dL (0.2-1.2) 03/05/20 18:37 AST 28 U/L (5-34) 03/05/20 18:37 ALT 34 U/L (8-55) 03/05/20 18:37 Alkaline Phosphatase 80 U/L (40-110) 03/05/20 18:37 Creatine Kinase 100 U/L (30-200) 03/05/20 18:37 Troponin I 0.024 ng/mL (< 0.028) 03/05/20 18:37 B-Natriuretic Peptide 125.3 pg/mL (0-100) H 03/05/20 18:37 Serum Total Protein 7.4 g/dL (5.8-8.1) 03/05/20 18:37 Albumin 4.3 g/dL (3.4-4.8) 03/05/20 18:37 Hospitalist H&P A/P - Plan Plan: This is a 64-year-old male patient with history of A. fib on apixaban, CHF with reduced EF, carotid artery disease who presents with intermittent chest pain and headaches. Initial evaluation notes persistent bradycardia with tachycardia noted on pacemaker interrogation. Chest pain Atypical features with no elevated troponin Pain resolved with aspirin and Tylenol. Continue aspirin trend troponin Cardiology evaluation the morning Had cardiac catheterization in the past year. Keep n.p.o. overnight. Possible sick sinus syndrome. Patient having bradycardia and tachycardia Consult cardiology/aphasic Monitor on telemetry. Coronary disease Continue home medications once verified. CHF Not in acute exacerbation Continue home Lasix and guideline directed medications. A. fib Not in RVR Continue apixaban Headaches Resolved with Tylenol Nothing seen on CT head Continue monitoring. CODE STATUSfull code VTE prophylaxisapixaban
[2020-03-05 22:01] LABS: Troponin I 0.018 ng/mL (< 0.028)
[2020-03-05] MEDS ORDERED: Furosemide 40 MG TAB PO SCH (23:00)
[2020-03-05] MEDS ORDERED: Ondansetron ODT 4 MG TAB SL PRN (23:30)
[2020-03-05] MEDS ORDERED: Ondansetron PF 4 MG/2 ML Vial IVP PRN (23:30)
[2020-03-06] MEDS: Furosemide 40 MG TAB PO SCH ×3 (01:16→13:18)
[2020-03-06 02:05] LABS: Troponin I 0.021 ng/mL (< 0.028)
[2020-03-06 02:38] VITALS: BMI 23.1
[2020-03-06 04:46] LABS: #Basophils 0.1 thou/uL (0.0-0.2); #Eosinphils 0.1 thou/uL (0.0-0.7); #Lymphocytes 1.5 thou/uL (1.20-3.40); #Monocytes 0.6 thou/uL (0.11-0.59); #Neutrophils 3.4 thou/uL (1.40-6.50); %Eosinophils 1.6 % (0.0-10.0); %Lymphocytes 26.5 % (21.0-51.0); %Monocytes 10.2 % (0.0-10.0); %Neutrophils 60.6 % (42.0-75.0); Hemoglobin 15.3 g/dL (14.0-18.0); Mean Corpuscular HGB CONC 31.9 g/dL (32.0-36.0); Mean Corpuscular Hemoglobin 30.3 pg (27.0-31.0); Mean Corpuscular Volume 95.1 fL (78.0-98.0); Platelet Count 163 thou/uL (130-400); RBC Distribution Width 11.5 % (11.5-14.5); Red Blood Cell (RBC) Count 5.04 mill/uL (4.70-6.10); White Blood Cell (WBC) Count 5.6 thou/uL (4.8-10.8)
[2020-03-06 05:07] LABS: Anion Gap 14 mmol/L (10-20); BUN (Urea Nitrogen) 11 mg/dL (8.4-25.7); Calc. Creatinine Clearance 85 mL/min (70-130); Calcium 8.8 mg/dL (7.8-10.44); Carbon Dioxide 23 mmol/L (23-31); Chloride 105 mmol/L (98-107); Glucose 127 mg/dL (80-115); Potassium 3.7 mmol/L (3.5-5.1); Sodium 138 mmol/L (136-145)
[2020-03-06] MEDS: Apixaban 5 MG TAB PO SCH ×2 (08:19→20:29)
[2020-03-06] MEDS: Atorvastatin Calcium 40 MG TAB PO SCH (08:19)
[2020-03-06] MEDS ORDERED: Aspirin Chewable 81 MG TAB PO SCH (09:00)
[2020-03-06 09:48] LABS: Hemoglobin 16.4 g/dL (14.0-18.0); Platelet Count 150 thou/uL (130-400)
[2020-03-06 12:51] LABS: SARS-CoV-2 MS2 Positive; SARS-CoV-2 N Gene Negative; SARS-CoV-2 S Gene Negative; SARS-CoV-2 by NAA Not Detected (NotDetected); SARS-CoV-2 orf1ab Negative
--- NOTE | 2020-03-06 15:28 | CON ---
DATE OF CONSULTATION: CONSULTING PHYSICIAN: Reese Kaufman MD HISTORY OF PRESENT ILLNESS: The patient is a 64-year-old gentleman with a history of mild coronary artery disease and atrial fibrillation, who presented with left-sided chest discomfort. The patient was seen initially in in May of 2019, and underwent a cardiac catheterization. He was found to have mild coronary artery disease with a 20% mild LAD lesion. He was found to have a severe decrease in left ventricular systolic function. The patient was placed on Entresto and Coreg. The patient had improvement in his left ventricular systolic function. He was found to have only a mild decrease of 40% to 45%. The patient presented with chest pain in January of this year and he was found to have atrial fibrillation with a rapid ventricular response. He once again had developed left-sided chest discomfort. The patient was felt to have probably noncardiac chest pain. The patient presents once again with chest discomfort. He states it is in the left side of his chest and goes to the middle of his chest. The patient also has history of an electronic ventricular pacemaker. The patient denies having any present chest discomfort. PAST MEDICAL HISTORY: 1. Mild coronary artery disease. 2. History of cardiomyopathy. 3. Atrial fibrillation. 4. Pacemaker placement. 5. Congestive heart failure. PAST SURGICAL HISTORY: None. SOCIAL HISTORY: Former smoker. ALLERGIES: NO KNOWN DRUG ALLERGIES. MEDICATIONS: 1. Coreg 3.125 b.i.d. 2. Digoxin 0.25 daily. 3. Entresto 4. Protonix 40 daily. 5. Glucophage 500 b.i.d. 6. Flomax 0.4 daily. 7. Eliquis 5 mg p.o. b.i.d. 8. Lipitor 40 at bedtime. REVIEW OF SYSTEMS: Ten-point system otherwise unremarkable. No history of bruising or bleeding or bright red blood per rectum. PHYSICAL EXAMINATION: GENERAL: A well-developed gentleman, in no acute distress. VITAL SIGNS: Blood pressure 118/74. NECK: No jugular venous distention. LUNGS: Clear to auscultation. HEART: Irregular rate and rhythm. Normal S1 and S2. No murmurs. ABDOMEN: Nondistended. EXTREMITIES: Show no edema. VASCULAR: Radial pulses are 2+. LABORATORY RESULTS: White blood cell count 5.6, hemoglobin 15.3, hematocrit 48.0, and his platelet are 163. Sodium was 138, potassium 3.7, chloride 105, bicarbonate 23, BUN 11, creatinine 0.89, and glucose is 120. Troponin 0.021. BNP 125. His EKG revealed an electronic ventricular pacemaker. Telemetry monitoring rapid atrial fibrillation with rate of approximately 180. IMPRESSION: 1. Chest pain, possibly due to a rapid atrial fibrillation. 2. Paroxysmal atrial fibrillation. 3. History of mild coronary artery disease. 4. History of cardiomyopathy. 5. Hypertension. 6. History of pacemaker placement. PLAN: This gentleman presents with chest discomfort. He has episodes of very rapid atrial fibrillation on interrogation of his pacemaker. I will start the patient on antiarrhythmic therapy with his history of a cardiomyopathy. We would recommend he will be taking Multaq. We will monitor the patient on telemetry to see his response to this medication. I would recommend discontinuing his Lasix. We will follow this patient with you through his hospitalization. Job ID: [id number] TRISTAN
[2020-03-06] MEDS: Carvedilol 3.125 MG TAB PO SCH (16:04)
[2020-03-06] MEDS: Dronedarone HCl 400 MG TAB PO SCH (16:04)
--- NOTE | 2020-03-06 16:33 | PDOC.HOSPP ---
- Subjective Encounter Date: 03/06/20 Encounter Time: 10:00 Subjective: patient seen on f/u for chest pain. patient reports intermittent 3/10 pain associated with palpitations but where not present during my evaluation. patient currently denies sob or palpitations, does report does with the episode of chest pain. - Objective Vital Signs & Weight: Vital Signs (12 hours) Temp Pulse Resp BP Pulse Ox 03/06/20 15:54 97.8 F 55 L 17 147/81 H 97 03/06/20 13:06 61 118/74 03/06/20 11:27 97.7 F 56 L 17 114/68 96 03/06/20 07:26 97.7 F 57 L 15 120/70 96 Weight Weight 156 lb 12.8 oz I&O: 03/05/20 03/06/20 03/07/20 06:59 06:59 06:59 Intake Total 120 Balance 120 Result Diagrams: 03/06/20 09:36 03/06/20 03:47 Hospitalist ROS - Review of Systems All other systems reviewed; all pertinent +/- noted in HPI/Subj - Medication Medications: Active Medications Generic Name Dose Route Start Last Admin Trade Name Freq PRN Reason Stop Dose Admin Apixaban 5 mg 03/06/20 09:00 03/06/20 08:19 Apixaban 5 Mg Tab PO 5 mg BID GABRIELLA Administration Atorvastatin Calcium 40 mg 03/06/20 09:00 03/06/20 08:19 Atorvastatin Calcium 40 Mg Tab PO 40 mg DAILY GABRIELLA Administration Carvedilol 3.125 mg 03/06/20 17:00 03/06/20 16:04 Carvedilol 3.125 Mg Tab PO 3.125 mg BID-WM GABRIELLA Administration Dronedarone 400 mg 03/06/20 17:00 03/06/20 16:04 Dronedarone Hcl 400 Mg Tab PO 400 mg BID-WM GABRIELLA Administration - Exam General Appearance: NAD, awake alert Eye: PERRL, anicteric sclera ENT: normocephalic atraumatic, no oropharyngeal lesions Neck: supple, symmetric, no JVD, no thyromegaly Heart: RRR, no murmur, no gallops, no rubs Respiratory: CTAB, no wheezes, no rales, no ronchi Gastrointestinal: soft, non-tender, non-distended, normal bowel sounds Extremities: no cyanosis, no clubbing Skin: normal turgor, no lesions, no rashes Neurological: cranial nerve grossly intact, normal sensation to touch, no weakness Musculoskeletal: normal tone, normal strength, no muscle wasting Psychiatric: normal affect, normal behavior, A&O x 3 Hosp A/P (1) Chest pain Code(s): R07.9 - CHEST PAIN, UNSPECIFIED Status: Acute (2) Afib Code(s): I48.91 - UNSPECIFIED ATRIAL FIBRILLATION Status: Chronic (3) Diabetes Code(s): E11.9 - TYPE 2 DIABETES MELLITUS WITHOUT COMPLICATIONS Status: Chronic (4) Hyperlipemia Code(s): E78.5 - HYPERLIPIDEMIA, UNSPECIFIED Status: Chronic (5) Hypertension Code(s): I10 - ESSENTIAL (PRIMARY) HYPERTENSION Status: Chronic (6) Pacemaker Code(s): Z95.0 - PRESENCE OF CARDIAC PACEMAKER Status: Chronic - Plan chest pain / atrial fibrillation on RVR - likely secondary to episodes of Paroxysmal atrial fibrillation w rvr - troponin negative - PPM was interview and afib in rvr was seen - EP was consulted - patient was started on multaq - continue telemetry monitoring - continue beta arvind, digoxin - continue ac with elliquis - on cad protective medication with betablocker, statin, refers recently milli was d/c
[2020-03-06] MEDS: HumaLOG 300 UNITS/3 ML VIAL SC PRN (17:34)
[2020-03-07] MEDS: Apixaban 5 MG TAB PO SCH ×2 (08:45→21:50)
[2020-03-07] MEDS: Dronedarone HCl 400 MG TAB PO SCH ×2 (08:45→16:59)
[2020-03-07] MEDS: Digoxin 0.25 MG TAB PO SCH (08:45)
[2020-03-07] MEDS: Carvedilol 3.125 MG TAB PO SCH ×2 (08:46→16:59)
[2020-03-07] MEDS: Atorvastatin Calcium 40 MG TAB PO SCH (08:46)
[2020-03-07] MEDS ORDERED: Digoxin 0.25 MG TAB PO SCH (09:00)
[2020-03-07] MEDS: HumaLOG 300 UNITS/3 ML VIAL SC PRN ×2 (10:38→16:58)
--- NOTE | 2020-03-07 14:01 | PDOC.HOSPP ---
- Subjective Encounter Date: 03/07/20 Encounter Time: 10:00 Subjective: patient seen on f/u for P atrial fibrillation with RVR. patient refers he has continued to have episodes of palpitations with associated chest pain. telemetry was called and confirmed multiple episodes of recurrent afib in RVR. patient denies sob or diaphoresis - Objective Vital Signs & Weight: Vital Signs (12 hours) Temp Pulse Resp BP Pulse Ox 03/07/20 12:41 56 L 16 122/82 99 03/07/20 08:48 99.4 F 65 16 135/70 947 H 03/07/20 08:45 74 03/07/20 03:09 97.6 F 74 20 123/79 96 Weight Weight 156 lb I&O: 03/06/20 03/07/20 03/08/20 06:59 06:59 06:59 Intake Total 120 1320 Balance 120 1320 Result Diagrams: 03/06/20 09:36 03/06/20 03:47 Additional Labs: Accuchecks 03/07/20 03/07/20 03/06/20 10:18 05:44 19:50 POC Glucose 189 H 98 164 H 03/06/20 16:46 POC Glucose 196 H Hospitalist ROS - Review of Systems All other systems reviewed; all pertinent +/- noted in HPI/Subj - Medication Medications: Active Medications Generic Name Dose Route Start Last Admin Trade Name Freq PRN Reason Stop Dose Admin Apixaban 5 mg 03/06/20 09:00 03/07/20 08:45 Apixaban 5 Mg Tab PO 5 mg BID GABRIELLA Administration Atorvastatin Calcium 40 mg 03/06/20 09:00 03/07/20 08:46 Atorvastatin Calcium 40 Mg Tab PO 40 mg DAILY GABRIELLA Administration Carvedilol 3.125 mg 03/06/20 17:00 03/07/20 08:46 Carvedilol 3.125 Mg Tab PO 3.125 mg BID-WM GABRIELLA Administration Digoxin 0.125 mg 03/07/20 09:00 03/07/20 08:45 Digoxin 0.25 Mg Tab PO 0.125 mg DAILY GABRIELLA Administration Dronedarone 400 mg 03/06/20 17:00 03/07/20 08:45 Dronedarone Hcl 400 Mg Tab PO 400 mg BID-WM GABRIELLA Administration Insulin Human Lispro 0 units 03/05/20 21:43 03/07/20 10:38 Humalog 300 Units/3 Ml Vial SC 2 unit .MILD SLIDING SCALE PRN Administration Mild Correctional Scale - Exam General Appearance: NAD, awake alert Eye: PERRL, anicteric sclera ENT: normocephalic atraumatic, no oropharyngeal lesions Neck: supple, symmetric, no JVD, no thyromegaly Heart: RRR, no murmur, no gallops, no rubs Respiratory: CTAB, no wheezes, no rales, no ronchi Gastrointestinal: soft, non-tender, non-distended Extremities: no cyanosis, no clubbing, no edema Skin: normal turgor, no lesions, no rashes Neurological: cranial nerve grossly intact, normal sensation to touch, no weakness Musculoskeletal: normal tone, normal strength, no muscle wasting Psychiatric: normal affect, normal behavior, A&O x 3 Hosp A/P (1) Chest pain Code(s): R07.9 - CHEST PAIN, UNSPECIFIED Status: Acute (2) Afib Code(s): I48.91 - UNSPECIFIED ATRIAL FIBRILLATION Status: Chronic (3) Diabetes Code(s): E11.9 - TYPE 2 DIABETES MELLITUS WITHOUT COMPLICATIONS Status: Chronic (4) Hyperlipemia Code(s): E78.5 - HYPERLIPIDEMIA, UNSPECIFIED Status: Chronic (5) Hypertension Code(s): I10 - ESSENTIAL (PRIMARY) HYPERTENSION Status: Chronic (6) Pacemaker Code(s): Z95.0 - PRESENCE OF CARDIAC PACEMAKER Status: Chronic - Plan chest pain / atrial fibrillation on RVR - chest pain likely secondary to episodes of Paroxysmal atrial fibrillation w rvr - troponin negative - PPM was interview and afib in rvr was seen - EP was consulted, patient will be taken on monday for FARTUN and cardioversion due to recurrent episodes. - patient was started on multaq - continue telemetry monitoring - continue beta arvind, digoxin - continue ac with elliquis - on cad protective medication with betablocker, statin, refers recently milli was d/c
[2020-03-07] MEDS ORDERED: Loratadine 10 MG TAB PO PRN (17:44)
[2020-03-07] MEDS: Acetaminophen 325 MG TAB PO PRN (22:00)
[2020-03-08 05:11] LABS: Anion Gap 15 mmol/L (10-20); BUN (Urea Nitrogen) 11 mg/dL (8.4-25.7); Band 1 % (5-11); Calc. Creatinine Clearance 90 mL/min (70-130); Calcium 8.4 mg/dL (7.8-10.44); Carbon Dioxide 23 mmol/L (23-31); Chloride 103 mmol/L (98-107); Eosinophils 1 % (0-10); Glucose 87 mg/dL (80-115); Hemoglobin 15.3 g/dL (14.0-18.0); Lymphocytes 22 % (21-51); MDiff Complete? YES; Mean Corpuscular HGB CONC 32.1 g/dL (32.0-36.0); Mean Corpuscular Hemoglobin 30.7 pg (27.0-31.0); Mean Corpuscular Volume 95.6 fL (78.0-98.0); Mean Platelet Volume 8.8 fL (7.4-10.4); Monocytes 2 % (0-10); Neutrophil 72 % (42-75); Platelet Count 158 thou/uL (130-400); Platelet Morphology Comment Appears Adequate; Potassium 3.4 mmol/L (3.5-5.1); RBC Distribution Width 11.6 % (11.5-14.5); RBC Morphology Normal; Reactive Lymphocytes 2 % (0-10); Red Blood Cell (RBC) Count 4.98 mill/uL (4.70-6.10); Sodium 138 mmol/L (136-145); White Blood Cell (WBC) Count 7.2 thou/uL (4.8-10.8)
[2020-03-08] MEDS ORDERED: Potassium Chloride 20 MEQ TAB PO SCH (06:15)
[2020-03-08] MEDS: Dronedarone HCl 400 MG TAB PO SCH ×2 (08:33→16:29)
[2020-03-08] MEDS: Apixaban 5 MG TAB PO SCH ×2 (08:33→22:02)
[2020-03-08] MEDS: Atorvastatin Calcium 40 MG TAB PO SCH (08:33)
[2020-03-08] MEDS: Carvedilol 3.125 MG TAB PO SCH ×2 (08:33→16:29)
[2020-03-08] MEDS: Digoxin 0.25 MG TAB PO SCH (08:34)
--- NOTE | 2020-03-08 10:23 | PDOC.HOSPP ---
- Subjective Encounter Date: 03/08/20 Encounter Time: 10:21 Subjective: patient seen, in follow up for afib, chest pain, sob. patient reports occasional chest pain and shortness of breath throughout day, anticipating kelli/dccv tomorrow, for the moment patient is reporting some increase in cough and pedal edema, ok with lasix trial - Objective Vital Signs & Weight: Vital Signs (12 hours) Temp Pulse Resp BP Pulse Ox 03/08/20 08:34 58 L 03/08/20 08:09 97.5 F L 58 L 15 132/90 99 03/08/20 03:08 97.6 F 48 L 16 147/78 H 97 Weight Weight 152 lb I&O: 03/07/20 03/08/20 03/09/20 06:59 06:59 06:59 Intake Total 1320 1700 Balance 1320 1700 Result Diagrams: 03/08/20 04:29 03/08/20 04:29 Additional Labs: Accuchecks 03/08/20 03/07/20 03/07/20 05:44 20:14 16:38 POC Glucose 98 200 H 193 H 03/07/20 10:18 POC Glucose 189 H Hospitalist ROS - Medication Medications: Active Medications Generic Name Dose Route Start Last Admin Trade Name Freq PRN Reason Stop Dose Admin Acetaminophen 650 mg 03/05/20 21:37 03/07/20 22:00 Acetaminophen 325 Mg Tab PO 650 mg Q4H PRN Administration Headache/Fever/Mild Pain (1-3) Apixaban 5 mg 03/06/20 09:00 03/08/20 08:33 Apixaban 5 Mg Tab PO 5 mg BID GABRIELLA Administration Atorvastatin Calcium 40 mg 03/06/20 09:00 03/08/20 08:33 Atorvastatin Calcium 40 Mg Tab PO 40 mg DAILY GABRIELLA Administration Carvedilol 3.125 mg 03/06/20 17:00 03/08/20 08:33 Carvedilol 3.125 Mg Tab PO 3.125 mg BID-WM GABRIELLA Administration Dronedarone 400 mg 03/06/20 17:00 03/08/20 08:33 Dronedarone Hcl 400 Mg Tab PO 400 mg BID-WM GABRIELLA Administration Insulin Human Lispro 0 units 03/05/20 21:43 03/07/20 16:58 Humalog 300 Units/3 Ml Vial SC 2 unit .MILD SLIDING SCALE PRN Administration Mild Correctional Scale Loratadine 10 mg 03/07/20 17:44 03/07/20 18:12 Loratadine 10 Mg Tab PO 10 mg Q12H PRN Administration ALLERGIES - Exam General Appearance: NAD, awake alert Eye: PERRL, anicteric sclera ENT: normocephalic atraumatic, no oropharyngeal lesions, moist mucosa Neck: supple, symmetric, no JVD, no thyromegaly, no lymphadenopathy, no carotid bruit Heart: RRR, no murmur, no gallops, no rubs, normal peripheral pulses Respiratory: CTAB, no wheezes, no rales, no ronchi, normal chest expansion, no tachypnea, normal percussion Gastrointestinal: soft, non-tender, non-distended, normal bowel sounds, no palpable masses, no hepatomegaly, no splenomegaly, no bruit Extremities: no cyanosis, no clubbing, 1+ LE edema (R>L) Skin: normal turgor, no lesions, no rashes Neurological: cranial nerve grossly intact, normal sensation to touch, no weakness, no focal deficits, no new deficit Musculoskeletal: normal tone, normal strength, no muscle wasting Psychiatric: normal affect, normal behavior, A&O x 3 Hosp A/P (1) Chest pain Code(s): R07.9 - CHEST PAIN, UNSPECIFIED Status: Acute (2) Afib Code(s): I48.91 - UNSPECIFIED ATRIAL FIBRILLATION Status: Chronic (3) Diabetes Code(s): E11.9 - TYPE 2 DIABETES MELLITUS WITHOUT COMPLICATIONS Status: Chronic (4) Hyperlipemia Code(s): E78.5 - HYPERLIPIDEMIA, UNSPECIFIED Status: Chronic (5) Hypertension Code(s): I10 - ESSENTIAL (PRIMARY) HYPERTENSION Status: Chronic (6) Pacemaker Code(s): Z95.0 - PRESENCE OF CARDIAC PACEMAKER Status: Chronic - Plan chest pain / atrial fibrillation on RVR - chest pain likely secondary to episodes of Paroxysmal atrial fibrillation w rvr - troponin negative - PPM was interview and afib in rvr was seen - EP was consulted, patient will be taken on monday for KELLI and cardioversion due to recurrent episodes. - patient was started on multaq - continue telemetry monitoring - continue beta arvind, digoxin - continue ac with elliquis - on cad protective medication with betablocker, statin, refers recently entresto was d/c - 03/08: telemetry reviewed, afib w/ PVCs, rate in 50-60s, still symptomatic w/ chest pain and BURNETT, anticipate KELLI/DCCV tomorrow, will give lasix due to edema and cough and possible early fluid overload
[2020-03-08] MEDS ORDERED: Furosemide 20 MG/2 ML VIAL SLOW IVP SCH (10:30)
[2020-03-08] MEDS ORDERED: Furosemide 80 MG TAB PO SCH (10:30)
[2020-03-09 02:35] LABS: #Basophils 0.1 thou/uL (0.0-0.2); #Eosinphils 0.1 thou/uL (0.0-0.7); #Lymphocytes 1.5 thou/uL (1.20-3.40); #Monocytes 0.5 thou/uL (0.11-0.59); #Neutrophils 3.8 thou/uL (1.40-6.50); %Eosinophils 2.4 % (0.0-10.0); %Lymphocytes 24.4 % (21.0-51.0); %Monocytes 8.5 % (0.0-10.0); %Neutrophils 63.7 % (42.0-75.0); Hemoglobin 16.3 g/dL (14.0-18.0); Mean Corpuscular HGB CONC 33.2 g/dL (32.0-36.0); Mean Corpuscular Hemoglobin 31.6 pg (27.0-31.0); Mean Platelet Volume 8.7 fL (7.4-10.4); Platelet Count 159 thou/uL (130-400); RBC Distribution Width 11.6 % (11.5-14.5); Red Blood Cell (RBC) Count 5.16 mill/uL (4.70-6.10)
[2020-03-09 02:50] LABS: Anion Gap 15 mmol/L (10-20); BUN (Urea Nitrogen) 13 mg/dL (8.4-25.7); Calc. Creatinine Clearance 79 mL/min (70-130); Calcium 8.9 mg/dL (7.8-10.44); Carbon Dioxide 25 mmol/L (23-31); Chloride 104 mmol/L (98-107); Glucose 97 mg/dL (80-115); Potassium 3.9 mmol/L (3.5-5.1); Sodium 140 mmol/L (136-145)
--- NOTE | 2020-03-09 11:39 | PDOC.HOSPP ---
- Subjective Encounter Date: 03/09/20 Encounter Time: 11:38 Subjective: some mild chest pain across front of chest overnight, no other issues reported. denies SOB. pedal edema stable. - Objective Vital Signs & Weight: Vital Signs (12 hours) Temp Pulse Resp BP Pulse Ox 03/09/20 08:27 97.7 F 53 L 16 139/76 96 03/09/20 04:57 97.6 F 52 L 14 131/71 96 03/09/20 00:00 52 L 16 142/82 H 95 Weight Weight 154 lb 11.2 oz I&O: 03/08/20 03/09/20 03/10/20 06:59 06:59 06:59 Intake Total 1700 960 Balance 1700 960 Result Diagrams: 03/09/20 02:16 03/09/20 02:16 Additional Labs: Accuchecks 03/09/20 03/09/20 03/08/20 11:26 05:44 20:29 POC Glucose 100 101 H 129 H 03/08/20 03/06/20 16:56 05:47 POC Glucose 152 H 102 H Radiology Reviewed by me: Yes Hospitalist ROS - Medication Medications: Active Medications Generic Name Dose Route Start Last Admin Trade Name Freq PRN Reason Stop Dose Admin Acetaminophen 650 mg 03/05/20 21:37 03/07/20 22:00 Acetaminophen 325 Mg Tab PO 650 mg Q4H PRN Administration Headache/Fever/Mild Pain (1-3) Apixaban 5 mg 03/06/20 09:00 03/08/20 22:02 Apixaban 5 Mg Tab PO 5 mg BID GABRIELLA Administration Atorvastatin Calcium 40 mg 03/06/20 09:00 03/08/20 08:33 Atorvastatin Calcium 40 Mg Tab PO 40 mg DAILY GABRIELLA Administration Carvedilol 3.125 mg 03/06/20 17:00 03/08/20 16:29 Carvedilol 3.125 Mg Tab PO 3.125 mg BID-WM GABRIELLA Administration Dronedarone 400 mg 03/06/20 17:00 03/08/20 16:29 Dronedarone Hcl 400 Mg Tab PO 400 mg BID-WM GABRIELLA Administration Insulin Human Lispro 0 units 03/05/20 21:43 03/07/20 16:58 Humalog 300 Units/3 Ml Vial SC 2 unit .MILD SLIDING SCALE PRN Administration Mild Correctional Scale Loratadine 10 mg 12/26/20 17:44 03/07/20 18:12 Loratadine 10 Mg Tab PO 10 mg Q12H PRN Administration ALLERGIES - Exam General Appearance: NAD, awake alert Eye: PERRL, anicteric sclera ENT: normocephalic atraumatic, no oropharyngeal lesions, moist mucosa Neck: supple, symmetric, no JVD, no thyromegaly, no lymphadenopathy, no carotid bruit Heart: RRR, no murmur, no gallops, no rubs, normal peripheral pulses Respiratory: CTAB, no wheezes, no rales, no ronchi, normal chest expansion, no tachypnea, normal percussion Gastrointestinal: soft, non-tender, non-distended, normal bowel sounds, no palp able masses, no hepatomegaly, no splenomegaly, no bruit Extremities: no cyanosis, no clubbing, 1+ LE edema Skin: normal turgor, no lesions, no rashes Neurological: cranial nerve grossly intact, normal sensation to touch, no w eakness, no focal deficits, no new deficit Musculoskeletal: normal tone, normal strength, no muscle wasting Psychiatric: normal affect, normal behavior, A&O x 3 Hosp A/P (1) Chest pain Code(s): R07.9 - CHEST PAIN, UNSPECIFIED Status: Acute (2) Afib Code(s): I48.91 - UNSPECIFIED ATRIAL FIBRILLATION Status: Chronic (3) Diabetes Code(s): E11.9 - TYPE 2 DIABETES MELLITUS WITHOUT COMPLICATIONS Status: Chronic (4) Hyperlipemia Code(s): E78.5 - HYPERLIPIDEMIA, UNSPECIFIED Status: Chronic (5) Hypertension Code(s): I10 - ESSENTIAL (PRIMARY) HYPERTENSION Status: Chronic (6) Pacemaker Code(s): Z95.0 - PRESENCE OF CARDIAC PACEMAKER Status: Chronic - Plan chest pain / atrial fibrillation on RVR - chest pain likely secondary to episodes of Paroxysmal atrial fibrillation w rvr - troponin negative - PPM was interview and afib in rvr was seen - EP was consulted, patient will be taken for FARTUN and cardioversion this admission due to recurrent episodes. - patient was started on multaq - continue telemetry monitoring - continue beta arvind, digoxin - continue ac with elliquis - on cad protective medication with betablocker, statin, refers recently milli was d/c - anticipate FARTUN/DCCV this admission, monitor fluid status daily off of scheduled diuretic, appreciate cardiology
[2020-03-09] MEDS: Carvedilol 3.125 MG TAB PO SCH ×2 (13:19→18:12)
[2020-03-09] MEDS: Dronedarone HCl 400 MG TAB PO SCH ×2 (13:19→17:09)
[2020-03-09] MEDS: Acetaminophen 325 MG TAB PO PRN (13:23)
[2020-03-09] MEDS: Apixaban 5 MG TAB PO SCH ×2 (13:23→23:07)
[2020-03-09] MEDS: Atorvastatin Calcium 40 MG TAB PO SCH (13:23)
[2020-03-09] MEDS: HumaLOG 300 UNITS/3 ML VIAL SC PRN (17:10)
--- NOTE | 2020-03-09 23:12 | EKG ---
Test Reason : Blood Pressure : / mmHG Vent. Rate : 057 BPM Atrial Rate : 416 BPM P-R Int : 000 ms QRS Dur : 098 ms QT Int : 408 ms P-R-T Axes : 000 060 064 degrees QTc Int : 397 ms Atrial fibrillation with slow ventricular response with frequent ventricular-paced complexes Possible Anterior infarct , age undetermined Abnormal ECG When compared with ECG of 05-MAR-2020 18:04, (Unconfirmed) Electronic ventricular pacemaker has replaced Atrial fibrillation Confirmed by Fransisco COPELAND ([id number]) on 03/09/2020 11:12:02 PM Referred By: AFFRAM Confirmed By:Fransisco COPELAND
[2020-03-10 04:56] LABS: #Eosinphils 0.1 thou/uL (0.0-0.7); #Lymphocytes 1.1 thou/uL (1.20-3.40); #Monocytes 0.3 thou/uL (0.11-0.59); #Neutrophils 1.9 thou/uL (1.40-6.50); %Basophils 0.8 % (0.0-1.0); %Eosinophils 3.9 % (0.0-10.0); %Lymphocytes 31.3 % (21.0-51.0); %Monocytes 9.2 % (0.0-10.0); %Neutrophils 54.8 % (42.0-75.0); Hemoglobin 16.1 g/dL (14.0-18.0); Mean Corpuscular Hemoglobin 32.4 pg (27.0-31.0); Mean Corpuscular Volume 95.3 fL (78.0-98.0); Mean Platelet Volume 8.6 fL (7.4-10.4); Platelet Count 148 thou/uL (130-400); RBC Distribution Width 11.4 % (11.5-14.5); Red Blood Cell (RBC) Count 4.97 mill/uL (4.70-6.10); White Blood Cell (WBC) Count 3.5 thou/uL (4.8-10.8)
[2020-03-10 05:21] LABS: Anion Gap 15 mmol/L (10-20); BUN (Urea Nitrogen) 13 mg/dL (8.4-25.7); Calc. Creatinine Clearance 84 mL/min (70-130); Calcium 8.7 mg/dL (7.8-10.44); Carbon Dioxide 24 mmol/L (23-31); Chloride 105 mmol/L (98-107); Glucose 80 mg/dL (80-115); Potassium 3.6 mmol/L (3.5-5.1); Sodium 140 mmol/L (136-145)
[2020-03-10] MEDS: Atorvastatin Calcium 40 MG TAB PO SCH (08:04)
[2020-03-10] MEDS: Dronedarone HCl 400 MG TAB PO SCH ×2 (08:04→17:05)
[2020-03-10] MEDS: Apixaban 5 MG TAB PO SCH ×2 (08:04→22:01)
[2020-03-10] MEDS: Carvedilol 3.125 MG TAB PO SCH ×2 (08:04→17:05)
[2020-03-10] MEDS ORDERED: PROPOFOL 200 MG/20 ML VIAL ONE (10:22)
[2020-03-10] MEDS ORDERED: PROPOFOL 20 ML ONE (11:13)
--- NOTE | 2020-03-10 16:02 | PDOC.DS.DS ---
Provider - Provider Date of Admission: 03/09/20 11:59 Admitting Provider: Reese Kaufman MD Primary Care Physician: Chente Dowling Course - Hospital Course Resuscitation Status: 03/05/20 21:37 Resuscitation Status Routine Resuscitation Status: FULL: Full Resuscitation - Labs Lab Results: 03/10/20 04:33 03/10/20 04:33 Abnormal Lab Results - Last 48 hrs 03/09/20 02:16: MCH 31.6 H 03/10/20 04:33: WBC 3.5 L, MCH 32.4 H, RDW 11.4 L, Lymphocytes # 1.1 L - Physical Exam Vitals: Vital Signs (12 hours) Temp Pulse Resp BP BP Pulse Ox 03/10/20 12:31 52 L 16 141/75 H 98 03/10/20 08:00 97 03/10/20 07:55 98.9 F 95 16 177/88 H 95 Weight Weight 154 lb 11.2 oz Physical Exam: The patient was seen and examined on the day of discharge. Problem - Problem (1) Chest pain Code(s): R07.9 - CHEST PAIN, UNSPECIFIED Status: Acute (2) Afib Code(s): I48.91 - UNSPECIFIED ATRIAL FIBRILLATION Status: Chronic (3) Diabetes Code(s): E11.9 - TYPE 2 DIABETES MELLITUS WITHOUT COMPLICATIONS Status: Chronic (4) Hyperlipemia Code(s): E78.5 - HYPERLIPIDEMIA, UNSPECIFIED Status: Chronic (5) Hypertension Code(s): I10 - ESSENTIAL (PRIMARY) HYPERTENSION Status: Chronic (6) Pacemaker Code(s): Z95.0 - PRESENCE OF CARDIAC PACEMAKER Status: Chronic Plan - Discharge Medications Prescriptions: Dronedarone HCl [Multaq] 400 mg PO BID- #60 tab Home Medications: Medication Instructions Recorded Confirmed Type Apixaban [Eliquis] 1 tab PO BID 05/20/19 03/06/20 History Atorvastatin Calcium 1 tab PO DAILY 05/20/19 03/06/20 History Nitroglycerin [Nitrostat] 0.4 mg SL Q5MIN PRN 05/20/19 03/06/20 History Tamsulosin HCl [Flomax] 0.4 mg PO DAILY 05/20/19 03/06/20 History metFORMIN [Glucophage] 500 mg PO BID 05/20/19 03/06/20 History Pantoprazole [Protonix] 40 mg PO DAILY #30 tab 02/05/20 03/06/20 Rx Carvedilol [Coreg] 3.125 mg PO BID 03/06/20 03/06/20 History Ergocalciferol [Drisdol] 1 cap PO ASDIR 03/06/20 03/06/20 History Dronedarone HCl [Multaq] 400 mg PO BID-WM #60 tab 03/10/20 Rx Allergies: No Known Allergies Allergy (Verified 03/06/20 03:40) - Discharge Instructions Discharge Instructions:: see dr nevarez in clinic, call office or go to ed for chest pain/shortness of breath/dizziness/palpitations/syncope Activity:: Activity as Tolerated Nourishment:: Diabetic Diet, Heart Healthy Diet - Follow up Plan Referrals: Chente Dowling MD [Primary Care Provider] - Disposition: HOME
--- NOTE | 2020-03-10 17:36 | EKG ---
Test Reason : POST CARDIOVERSION Blood Pressure : / mmHG Vent. Rate : 051 BPM Atrial Rate : 051 BPM P-R Int : 178 ms QRS Dur : 098 ms QT Int : 412 ms P-R-T Axes : 080 076 072 degrees QTc Int : 379 ms Demand pacemaker; interpretation is based on intrinsic rhythm Sinus bradycardia with Premature ventricular complexes or Fusion complexes T wave abnormality, consider lateral ischemia Abnormal ECG Confirmed by Fransisco COPELAND ([id number]) on 03/10/2020 5:36:06 PM Referred By: MIN Confirmed By:Fransisco COPELAND
[2020-03-10] MEDS: HumaLOG 300 UNITS/3 ML VIAL SC PRN (17:58)
--- NOTE | 2020-03-10 18:41 | PDOC.HOSPP ---
- Subjective Encounter Date: 03/10/20 Encounter Time: 11:10 Subjective: patient seen this morning, was done w/ dccv and was in sinus/paced and was about to go home but had afib conversion again before d/c and dr nevarez recommended remain here. no chest pain/sob, edema stable or improved a bit - Objective Vital Signs & Weight: Vital Signs (12 hours) Temp Pulse Resp BP BP Pulse Ox 03/10/20 16:00 98.4 F 74 16 140/69 97 03/10/20 12:31 52 L 16 141/75 H 98 03/10/20 08:00 97 03/10/20 07:55 98.9 F 95 16 177/88 H 95 Weight Weight 154 lb 11.2 oz I&O: 03/09/20 03/10/20 03/11/20 06:59 06:59 06:59 Intake Total 960 Balance 960 Result Diagrams: 03/10/20 04:33 03/10/20 04:33 Additional Labs: Accuchecks 03/10/20 03/10/20 03/10/20 16:42 13:52 05:22 POC Glucose 180 H 110 H 82 Radiology Reviewed by me: Yes Hospitalist ROS - Medication Medications: Active Medications Generic Name Dose Route Start Last Admin Trade Name Freq PRN Reason Stop Dose Admin Acetaminophen 650 mg 03/05/20 21:37 03/09/20 13:23 Acetaminophen 325 Mg Tab PO 650 mg Q4H PRN Administration Headache/Fever/Mild Pain (1-3) Apixaban 5 mg 03/06/20 09:00 03/10/20 08:04 Apixaban 5 Mg Tab PO 5 mg BID GABRIELLA Administration Atorvastatin Calcium 40 mg 03/06/20 09:00 03/10/20 08:04 Atorvastatin Calcium 40 Mg Tab PO 40 mg DAILY GABRIELLA Administration Carvedilol 3.125 mg 03/06/20 17:00 03/10/20 17:05 Carvedilol 3.125 Mg Tab PO 3.125 mg BID-WM GABRIELLA Administration Dronedarone 400 mg 03/06/20 17:00 03/10/20 17:05 Dronedarone Hcl 400 Mg Tab PO 400 mg BID-WM GABRIELLA Administration Insulin Human Lispro 0 units 03/05/20 21:43 03/10/20 17:58 Humalog 300 Units/3 Ml Vial SC 2 unit .MILD SLIDING SCALE PRN Administration Mild Correctional Scale Loratadine 10 mg 03/07/20 17:44 03/07/20 18:12 Loratadine 10 Mg Tab PO 10 mg Q12H PRN Administration ALLERGIES - Exam General Appearance: NAD, awake alert Eye: PERRL, anicteric sclera ENT: normocephalic atraumatic, no oropharyngeal lesions, moist mucosa Neck: supple, symmetric, no JVD, no thyromegaly, no lymphadenopathy, no carotid bruit Heart: RRR, no murmur, no gallops, no rubs, normal peripheral pulses Respiratory: CTAB, no wheezes, no rales, no ronchi, normal chest expansion, no tachypnea, normal percussion Gastrointestinal: soft, non-tender, non-distended, normal bowel sounds, no palpable masses, no hepatomegaly, no splenomegaly, no bruit Extremities: no cyanosis, no clubbing, 1+ LE edema Skin: normal turgor, no lesions, no rashes Neurological: cranial nerve grossly intact, normal sensation to touch, no weakness, no focal deficits, no new deficit Musculoskeletal: normal tone, normal strength, no muscle wasting Psychiatric: normal affect, normal behavior, A&O x 3 Hosp A/P (1) Chest pain Code(s): R07.9 - CHEST PAIN, UNSPECIFIED Status: Acute (2) Afib Code(s): I48.91 - UNSPECIFIED ATRIAL FIBRILLATION Status: Chronic (3) Diabetes Code(s): E11.9 - TYPE 2 DIABETES MELLITUS WITHOUT COMPLICATIONS Status: Chronic (4) Hyperlipemia Code(s): E78.5 - HYPERLIPIDEMIA, UNSPECIFIED Status: Chronic (5) Hypertension Code(s): I10 - ESSENTIAL (PRIMARY) HYPERTENSION Status: Chronic (6) Pacemaker Code(s): Z95.0 - PRESENCE OF CARDIAC PACEMAKER Status: Chronic - Plan chest pain / atrial fibrillation on RVR - chest pain likely secondary to episodes of Paroxysmal atrial fibrillation w rvr - troponin negative - PPM was interview and afib in rvr was seen - EP was consulted, patient will be taken for KELLI and cardioversion this admission due to recurrent episodes. - patient was started on multaq - continue telemetry monitoring - continue beta arvind, digoxin - continue ac with elliquis - on cad protective medication with betablocker, statin, refers recently entresto was d/c - 03/10: s/p dccv/kelli today and was in sinus/paced and was about to go home but had afib conversion again before d/c and dr nevarez recommended remain here
[2020-03-11 06:36] LABS: #Basophils 0.1 thou/uL (0.0-0.2); #Eosinphils 0.2 thou/uL (0.0-0.7); #Lymphocytes 1.5 thou/uL (1.20-3.40); #Monocytes 0.4 thou/uL (0.11-0.59); #Neutrophils 2.8 thou/uL (1.40-6.50); %Basophils 1.1 % (0.0-1.0); %Eosinophils 3.3 % (0.0-10.0); %Lymphocytes 30.4 % (21.0-51.0); %Monocytes 8.8 % (0.0-10.0); %Neutrophils 56.4 % (42.0-75.0); Hemoglobin 15.5 g/dL (14.0-18.0); Mean Corpuscular HGB CONC 33.2 g/dL (32.0-36.0); Mean Corpuscular Hemoglobin 31.6 pg (27.0-31.0); Mean Corpuscular Volume 95.1 fL (78.0-98.0); Mean Platelet Volume 6.4 fL (7.4-10.4); Platelet Count 149 thou/uL (130-400); RBC Distribution Width 11.5 % (11.5-14.5); Red Blood Cell (RBC) Count 4.91 mill/uL (4.70-6.10); White Blood Cell (WBC) Count 4.9 thou/uL (4.8-10.8)
[2020-03-11 06:52] LABS: Anion Gap 13 mmol/L (10-20); BUN (Urea Nitrogen) 12 mg/dL (8.4-25.7); Calc. Creatinine Clearance 79 mL/min (70-130); Calcium 8.4 mg/dL (7.8-10.44); Carbon Dioxide 23 mmol/L (23-31); Chloride 108 mmol/L (98-107); Glucose 93 mg/dL (80-115); Potassium 3.8 mmol/L (3.5-5.1); Sodium 140 mmol/L (136-145)
[2020-03-11 09:29] VITALS: TEMP 97.6
[2020-03-11] MEDS: Dronedarone HCl 400 MG TAB PO SCH (09:30)
[2020-03-11] MEDS: Apixaban 5 MG TAB PO SCH (09:30)
[2020-03-11] MEDS: Carvedilol 3.125 MG TAB PO SCH (09:30)
[2020-03-11] MEDS: Atorvastatin Calcium 40 MG TAB PO SCH (09:31)
[2020-03-11 11:29] VITALS: BP 134/74
--- NOTE | 2020-03-11 12:23 | PDOC.DS.DS ---
Provider - Provider Date of Admission: 03/09/20 11:59 Admitting Provider: Reese Kaufman MD Primary Care Physician: Chente Dowling Course - Hospital Course Resuscitation Status: 03/05/20 21:37 Resuscitation Status Routine Resuscitation Status: FULL: Full Resuscitation - Labs Lab Results: 03/11/20 06:15 03/11/20 06:15 Abnormal Lab Results - Last 48 hrs 03/10/20 04:33: WBC 3.5 L, MCH 32.4 H, RDW 11.4 L, Lymphocytes # 1.1 L 03/11/20 06:15: Chloride 108 H 03/11/20 06:15: MCH 31.6 H, MPV 6.4 L, Basophils % 1.1 H - Physical Exam Vitals: Vital Signs (12 hours) Temp Pulse Resp BP BP Pulse Ox 03/11/20 11:26 50 L 14 134/74 98 03/11/20 09:28 97.6 F 60 16 141/70 H 100 03/11/20 03:18 97.4 F L 52 L 16 139/70 96 Weight Weight 154 lb 11.2 oz Physical Exam: The patient was seen and examined on the day of discharge. Problem - Problem (1) Chest pain Code(s): R07.9 - CHEST PAIN, UNSPECIFIED Status: Acute (2) Afib Code(s): I48.91 - UNSPECIFIED ATRIAL FIBRILLATION Status: Chronic (3) Diabetes Code(s): E11.9 - TYPE 2 DIABETES MELLITUS WITHOUT COMPLICATIONS Status: Chronic (4) Hyperlipemia Code(s): E78.5 - HYPERLIPIDEMIA, UNSPECIFIED Status: Chronic (5) Hypertension Code(s): I10 - ESSENTIAL (PRIMARY) HYPERTENSION Status: Chronic (6) Pacemaker Code(s): Z95.0 - PRESENCE OF CARDIAC PACEMAKER Status: Chronic Plan - Discharge Medications Prescriptions: Carvedilol [Coreg] 6.25 mg PO BID- #120 tab Sacubitril/Valsartan [Entresto 24 mg-26 mg Tablet] 0.5 tab PO BID #30 tab Home Medications: Medication Instructions Recorded Confirmed Type Apixaban [Eliquis] 1 tab PO BID 05/20/19 03/06/20 History Atorvastatin Calcium 1 tab PO DAILY 05/20/19 03/06/20 History Nitroglycerin [Nitrostat] 0.4 mg SL Q5MIN PRN 05/20/19 03/06/20 History Tamsulosin HCl [Flomax] 0.4 mg PO DAILY 05/20/19 03/06/20 History metFORMIN [Glucophage] 500 mg PO BID 05/20/19 03/06/20 History Pantoprazole [Protonix] 40 mg PO DAILY #30 tab 02/05/20 03/06/20 Rx Ergocalciferol [Drisdol] 1 cap PO ASDIR 03/06/20 03/06/20 History Carvedilol [Coreg] 6.25 mg PO BID-WM #120 tab 03/11/20 Rx Sacubitril/Valsartan [Entresto 24 0.5 tab PO BID #30 tab 03/11/20 Rx mg-26 mg Tablet] Allergies: No Known Allergies Allergy (Verified 03/06/20 03:40) - Discharge Instructions Discharge Instructions:: see dr nevarez in clinic, call office or go to ed for chest pain/shortness of breath/dizziness/palpitations/syncope Activity:: Activity as Tolerated Nourishment:: Diabetic Diet, Heart Healthy Diet - Follow up Plan Referrals: Chente Dowling MD [Primary Care Provider] - 7 Days (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 Schedule a follow up apt in 7days. ) Shahana Nevarez MD [Active] - 2-3 Weeks (Please call the office) Disposition: HOME
[2020-03-11] MEDS ORDERED: Carvedilol 3.125 MG TAB PO SCH (17:00)
[2020-03-12] MEDS ORDERED: Potassium Chloride 10 MEQ TAB PO SCH (08:00)
[2020-03-12] MEDS ORDERED: Digoxin 0.125 MG TAB PO SCH (09:00)
[2020-03-12] MEDS ORDERED: Furosemide 20 MG TAB PO SCH ×2 (09:00)
--- NOTE | 2020-03-14 14:49 | EKG ---
Test Reason : CP Blood Pressure : / mmHG Vent. Rate : 054 BPM Atrial Rate : 500 BPM P-R Int : 000 ms QRS Dur : 098 ms QT Int : 388 ms P-R-T Axes : 000 073 052 degrees QTc Int : 367 ms Demand pacemaker; interpretation is based on intrinsic rhythm Atrial fibrillation with slow ventricular response with premature ventricular or aberrantly conducted complexes Nonspecific T wave abnormality , probably digitalis effect Abnormal ECG Confirmed by LIBERTY SALAZAR DO ([id number]), image editor CRYSTAL FORD ([id number]) on 03/14/2020 2:48:32 PM Referred By: Confirmed By:LIBERTY SALAZAR DO
== END 2020-03-11 18:09 | disposition home or self-care (01) | DRG 310 ==
LOC: ERS 17:47 → 2NO 21:09 → OBSVTOIN 03-09 11:59 → 2NO 03-09 14:30
PROVIDERS: ADMIT Student in an Organized Health Care Education/Training Program; ATTEND Student in an Organized Health Care Education/Training Program
DX: I48.0 Paroxysmal atrial fibrillation (principal); E11.9 Type 2 diabetes mellitus without complications; I11.0 Hypertensive heart disease with heart failure; I50.9 Heart failure, unspecified; Z20.828 Contact with and (suspected) exposure to other viral communicable diseases; E78.5 Hyperlipidemia, unspecified; I25.10 Atherosclerotic heart disease of native coronary artery without angina pectoris; Z79.01 Long term (current) use of anticoagulants; Z95.0 Presence of cardiac pacemaker; Z87.891 Personal history of nicotine dependence
CPT/HCPCS: 36415; 36416; 70450; 71045; 80048; 80053; 82550; 83735; 83880; 84443; 84484; 85007; 85025; 85027; 85379; 87635; 90471; 90732; 92960; 93005; 93010; 93312; 94760; 96374; G0009; G0378; J1940; J2704; U0003

== ENCOUNTER 2020-05-18 13:04 | Outpatient (CLI) | payer OTHER ==
[2020-05-18 14:49] LABS: Anion Gap 15 mmol/L (10-20); BUN (Urea Nitrogen) 23 mg/dL (8.4-25.7); Calc. Creatinine Clearance 0 mL/min (70-130); Calcium 9.8 mg/dL (7.8-10.44); Carbon Dioxide 23 mmol/L (23-31); Chloride 104 mmol/L (98-107); Glucose 70 mg/dL (80-115); Potassium 5.9 mmol/L (3.5-5.1); Sodium 136 mmol/L (136-145)
[2020-05-18 14:55] LABS: #Basophils 0.1 10x3/uL (0.0-0.2); #Eosinphils 0.1 10x3/uL (0.0-0.5); #Monocytes 0.5 10x3/uL (0.0-1.1); #Neutrophils 2.9 10x3/uL (1.5-8.4); %Basophils 1.1 % (0.0-2.0); %Eosinophils 2.5 % (0.0-6.0); %Lymphocytes 31.9 % (18.0-47.0); %Monocytes 9.7 % (0.0-10.0); %Neutrophils 54.4 % (40.0-75.0); Hemoglobin 15.1 g/dL (13.5-17.5); Mean Corpuscular HGB CONC 31.9 g/dL (32.0-36.0); Mean Corpuscular Hemoglobin 30.1 pg (27.0-33.0); Mean Corpuscular Volume 94.6 fl (81.2-95.1); Platelet Count 183 10x3/uL (150-450); RBC Distribution Width 12.8 % (11.5-14.5); Red Blood Cell (RBC) Count 5.01 10x6/uL (4.32-5.72); White Blood Cell (WBC) Count 5.3 10x3/uL (3.5-10.5)
[2020-05-19 02:30] LABS: SARS-CoV-2 PCR by NAA Not Detected (NotDetected)
== END 2020-05-18 13:05 | disposition home or self-care (01) ==
LOC: LABBT 13:04
PROVIDERS: ATTEND Internal Medicine Cardiovascular Disease
DX: Z01.818 Encounter for other preprocedural examination (principal); I48.0 Paroxysmal atrial fibrillation; Z20.822 Contact with and (suspected) exposure to COVID-19
CPT/HCPCS: 80048; 85025; 87635; 93005; 93010; U0003; U0005

== ENCOUNTER 2020-05-21 06:04 | Day surgery (SDC) | payer OTHER ==
[2020-05-19 14:56] VITALS: BMI 22.1
[2020-05-21] MEDS ORDERED: PROPOFOL 40 ML ONE (06:31)
== END 2020-05-21 08:45 | disposition home or self-care (01) ==
LOC: CCL 06:04
PROVIDERS: ATTEND Internal Medicine Cardiovascular Disease
PROC: 5A2204Z Restoration of Cardiac Rhythm, Single (ICD-10-PCS; principal; 2020-05-21)
DX: I48.20 Chronic atrial fibrillation, unspecified (principal); I42.9 Cardiomyopathy, unspecified; E78.00 Pure hypercholesterolemia, unspecified; E11.9 Type 2 diabetes mellitus without complications; I25.10 Atherosclerotic heart disease of native coronary artery without angina pectoris; Z86.73 Personal history of transient ischemic attack (TIA), and cerebral infarction without residual deficits; Z79.01 Long term (current) use of anticoagulants; Z79.84 Long term (current) use of oral hypoglycemic drugs; Z79.899 Other long term (current) drug therapy; Z95.0 Presence of cardiac pacemaker
CPT/HCPCS: 92960; 93005; 93010; J2704

== ENCOUNTER 2020-05-22 18:24 | Emergency (ER) | payer OTHER ==
[2020-05-22 21:38] LABS: Hemoglobin 14.9 g/dL (14.0-18.0); Mean Corpuscular HGB CONC 34.1 g/dL (32.0-36.0); Mean Corpuscular Hemoglobin 32.6 pg (27.0-31.0); Mean Corpuscular Volume 95.5 fL (78.0-98.0); Mean Platelet Volume 9.4 fL (7.4-10.4); Platelet Count 144 thou/uL (130-400); RBC Distribution Width 12.5 % (11.5-14.5); Red Blood Cell (RBC) Count 4.57 mill/uL (4.70-6.10); White Blood Cell (WBC) Count 5.9 thou/uL (4.8-10.8)
[2020-05-22 21:44] LABS: Band 1 % (5-11); Eosinophils 2 % (0-10); Lymphocytes 23 % (21-51); Monocytes 7 % (0-10); Neutrophil 66 % (42-75); Platelet Morphology Comment Appears Adequate; Reactive Lymphocytes 1 % (0-10)
[2020-05-22 21:45] LABS: MDiff Complete? YES
[2020-05-22 23:02] LABS: ALT (SGPT) 58 U/L (8-55); AST (SGOT) 40 U/L (5-34); Albumin 4.5 g/dL (3.4-4.8); Alkaline Phosphatase 72 U/L (40-110); Anion Gap 15 mmol/L (10-20); BUN (Urea Nitrogen) 14 mg/dL (8.4-25.7); Bilirubin, Total 0.9 mg/dL (0.2-1.2); Calc. Creatinine Clearance 0 mL/min (70-130); Calcium 9.1 mg/dL (7.8-10.44); Carbon Dioxide 21 mmol/L (23-31); Chloride 105 mmol/L (98-107); Globulin 3.6 g/dL (2.4-3.5); Glucose 121 mg/dL (80-115); Lipase 36 U/L (8-78); Potassium 5.1 mmol/L (3.5-5.1); Protein, Total 8.1 g/dL (5.8-8.1); Sodium 136 mmol/L (136-145)
[2020-05-22] MEDS ORDERED: HYDROcodone/Acetaminophen 5/325 mg Tablet ONE (23:44)
== END 2020-05-22 23:54 | disposition home or self-care (01) ==
LOC: ERS 18:24
DX: R07.89 Other chest pain (principal); I10 Essential (primary) hypertension; E11.9 Type 2 diabetes mellitus without complications; E78.5 Hyperlipidemia, unspecified; I48.91 Unspecified atrial fibrillation; Z87.891 Personal history of nicotine dependence; Z79.899 Other long term (current) drug therapy; Z79.84 Long term (current) use of oral hypoglycemic drugs; Z79.01 Long term (current) use of anticoagulants
CPT/HCPCS: 36415; 71045; 80053; 83690; 84484; 85025; 93005

== ENCOUNTER 2020-09-11 14:28 | Outpatient (CLI) | payer OTHER ==
[2020-09-11 16:00] LABS: #Eosinphils 0.2 10x3/uL (0.0-0.5); #Monocytes 0.5 10x3/uL (0.0-1.1); #Neutrophils 2.5 10x3/uL (1.5-8.4); %Basophils 0.9 % (0.0-2.0); %Eosinophils 5.1 % (0.0-6.0); %Lymphocytes 30.8 % (18.0-47.0); %Monocytes 9.9 % (0.0-10.0); %Neutrophils 53.1 % (40.0-75.0); Hemoglobin 14.2 g/dL (13.5-17.5); Mean Corpuscular HGB CONC 32.9 g/dL (32.0-36.0); Mean Corpuscular Hemoglobin 30.7 pg (27.0-33.0); Mean Corpuscular Volume 93.1 fl (81.2-95.1); Mean Platelet Volume 10.4 fl (7.4-10.4); Platelet Count 189 10x3/uL (150-450); Red Blood Cell (RBC) Count 4.63 10x6/uL (4.32-5.72); White Blood Cell (WBC) Count 4.7 10x3/uL (3.5-10.5)
[2020-09-11 16:17] LABS: Anion Gap 15 mmol/L (10-20); BUN (Urea Nitrogen) 19 mg/dL (8.4-25.7); Calc. Creatinine Clearance 0 mL/min (70-130); Calcium 9.1 mg/dL (7.8-10.44); Carbon Dioxide 21 mmol/L (23-31); Chloride 106 mmol/L (98-107); Glucose 149 mg/dL (80-115); Potassium 4.7 mmol/L (3.5-5.1); Sodium 137 mmol/L (136-145)
== END 2020-09-11 14:29 | disposition home or self-care (01) ==
LOC: LABBT 14:28
PROVIDERS: ATTEND Internal Medicine Cardiovascular Disease
DX: Z01.818 Encounter for other preprocedural examination (principal); Z45.010 Encounter for checking and testing of cardiac pacemaker pulse generator [battery]
CPT/HCPCS: 80048; 85025; 93005; 93010

== ENCOUNTER → 2020-09-16 | Day surgery (SDC) | payer OTHER ==
[2020-09-15 12:49] VITALS: BMI 23.8
[~2020-09-16] MED LIST changes: +CEFAZOLIN 1 GM VIAL ONE; +Gentamicin 80 MG/2 ML VIAL ONE; -Heparin 10,000 UNITS/1 ML VIAL ONE; -Iopamidol 370 76% 100 ML VIAL ONE; -Nitroglycerin 100MG/250ML BOT 250 ML ONE; -Verapamil 5 MG/2 ML VIAL ONE
== END ==
LOC: CCL 10:45
PROVIDERS: ATTEND Internal Medicine Cardiovascular Disease
PROC: 0JH607Z Insertion of Cardiac Resynchronization Pacemaker Pulse Generator into Chest Subcutaneous Tissue and Fascia, Open Approach (ICD-10-PCS; principal; 2020-09-16)
DX: I48.21 Permanent atrial fibrillation (principal); I11.0 Hypertensive heart disease with heart failure; I50.22 Chronic systolic (congestive) heart failure; E11.9 Type 2 diabetes mellitus without complications; E78.00 Pure hypercholesterolemia, unspecified; E78.2 Mixed hyperlipidemia; Z79.01 Long term (current) use of anticoagulants; Z79.84 Long term (current) use of oral hypoglycemic drugs; Z79.899 Other long term (current) drug therapy; Z86.73 Personal history of transient ischemic attack (TIA), and cerebral infarction without residual deficits; Z87.891 Personal history of nicotine dependence
CPT/HCPCS: 33227; 93005; 93010; 99152; 99153; J0690; J1580; J2001; J2250

== ENCOUNTER 2021-01-29 11:55 | Observation (INO) | payer OTHER ==
[2021-01-29 12:13] VITALS: BMI 25.7
[2021-01-29] MEDS ORDERED: Nitroglycerin 0.4 MG TAB (25 Tab Bottle) SL PRN (12:36)
[2021-01-29] MEDS ORDERED: Ondansetron PF 4 MG/2 ML Vial IVP PRN (12:38)
[2021-01-29] MEDS ORDERED: Senokot S 8.6-50 MG TAB PO PRN (12:38)
[2021-01-29] MEDS ORDERED: Aspirin 325 MG TAB PO SCH (12:45)
[2021-01-29] MEDS: Acetaminophen 325 MG TAB PO PRN ×2 (17:08→20:22)
[2021-01-29] MEDS ORDERED: FLU VACC QS2021-22(6MOS UP)/PF 60 MCG/0.5 ML SYRINGE IM ONE (18:00)
[2021-01-29] MEDS ORDERED: Dextrose 50% Abboject 50 ML SYRINGE SLOW IVP PRN (20:09)
[2021-01-29] MEDS ORDERED: HumaLOG 300 UNITS/3 ML VIAL SC PRN ×2 (20:09)
[2021-01-29] MEDS ORDERED: Dextrose 5% in Water 1,000 ML IV PRN (20:09)
[2021-01-29] MEDS: Apixaban 5 MG TAB PO SCH (20:23)
[2021-01-29] MEDS: Famotidine 20 MG TAB PO SCH (20:50)
[2021-01-29] MEDS ORDERED: Atorvastatin Calcium 40 MG TAB PO SCH (21:00)
[2021-01-30 04:55] LABS: #Eosinphils 0.2 thou/uL (0.0-0.7); #Lymphocytes 1.3 thou/uL (1.20-3.40); #Monocytes 0.4 thou/uL (0.11-0.59); #Neutrophils 2.7 thou/uL (1.40-6.50); %Eosinophils 4.3 % (0.0-10.0); %Lymphocytes 28.5 % (21.0-51.0); %Neutrophils 57.3 % (42.0-75.0); Hemoglobin 15.3 g/dL (14.0-18.0); Mean Corpuscular HGB CONC 33.2 g/dL (32.0-36.0); Mean Corpuscular Hemoglobin 31.6 pg (27.0-31.0); Mean Corpuscular Volume 95.4 fL (78.0-98.0); Mean Platelet Volume 8.3 fL (7.4-10.4); Platelet Count 152 thou/uL (130-400); RBC Distribution Width 11.9 % (11.5-14.5); Red Blood Cell (RBC) Count 4.83 mill/uL (4.70-6.10); White Blood Cell (WBC) Count 4.7 thou/uL (4.8-10.8)
[2021-01-30 05:11] LABS: Anion Gap 11 mmol/L (10-20); BUN (Urea Nitrogen) 10 mg/dL (8.4-25.7); Calc. Creatinine Clearance 102 mL/min (70-130); Calcium 9.2 mg/dL (7.8-10.44); Carbon Dioxide 22 mmol/L (23-31); Cardiac Risk 3.1 (Less than 4.5); Chloride 109 mmol/L (98-107); Cholesterol 108 mg/dl (< 200 Desired); Glucose 94 mg/dL (80-115); HDL Cholesterol 35 mg/dL (>60 Neg Risk); LDL Cholesterol, Calculated 61 mg/dL; Potassium 4.1 mmol/L (3.5-5.1); Sodium 138 mmol/L (136-145); Triglycerides 61 mg/dL (Less than 150)
[2021-01-30] MEDS ORDERED: Carvedilol 6.25 MG TAB PO SCH (08:00)
[2021-01-30] MEDS ORDERED: Enoxaparin Sodium 40 MG/0.4 ML SYRINGE SC SCH (09:00)
[2021-01-30] MEDS ORDERED: Tamsulosin HCl 0.4 MG CAP PO SCH (09:00)
[2021-01-30] MEDS ORDERED: ADENOSINE 60 MG/20 ML VIAL ONE (12:05)
[2021-01-30] MEDS: Apixaban 5 MG TAB PO SCH (14:09)
[2021-01-30] MEDS: Famotidine 20 MG TAB PO SCH (14:09)
[2021-01-30 15:33] VITALS: BP 132/80; TEMP 97.9
== END 2021-01-30 16:50 | disposition home or self-care (01) ==
LOC: 2NO 12:05
PROVIDERS: ADMIT Internal Medicine; ATTEND Physician Assistant
DX: R07.89 Other chest pain (principal); I11.0 Hypertensive heart disease with heart failure; I50.9 Heart failure, unspecified; I25.10 Atherosclerotic heart disease of native coronary artery without angina pectoris; I42.9 Cardiomyopathy, unspecified; I48.20 Chronic atrial fibrillation, unspecified; I07.1 Rheumatic tricuspid insufficiency; E78.5 Hyperlipidemia, unspecified; E11.9 Type 2 diabetes mellitus without complications; N40.0 Benign prostatic hyperplasia without lower urinary tract symptoms; Z95.0 Presence of cardiac pacemaker; Z79.01 Long term (current) use of anticoagulants; Z79.84 Long term (current) use of oral hypoglycemic drugs; Z79.899 Other long term (current) drug therapy; Z95.5 Presence of coronary angioplasty implant and graft; Z87.891 Personal history of nicotine dependence
CPT/HCPCS: 36415; 36416; 78452; 80048; 80061; 85025; 93005; 93010; 93017; 93306; A9500; G0378; J0153

== ENCOUNTER 2021-11-01 22:20 | Observation (INO) | payer OTHER ==
[2021-11-02] MEDS ORDERED: Acetaminophen 325 MG TAB PO PRN (04:22)
[2021-11-02] MEDS ORDERED: Senokot S 8.6-50 MG TAB PO PRN (04:22)
[2021-11-02] MEDS ORDERED: Bisacodyl 5 MG TAB PO PRN (04:22)
[2021-11-02] MEDS ORDERED: Ondansetron ODT 4 MG TAB PO PRN (04:22)
[2021-11-02] MEDS ORDERED: HYDROcodone/Acetaminophen 5/325 mg Tablet PO PRN (04:22)
[2021-11-02] MEDS ORDERED: Ondansetron PF 4 MG/2 ML Vial IVP PRN (04:22)
[2021-11-02] MEDS ORDERED: Dextrose 50% Abboject 50 ML SYRINGE SLOW IVP PRN (04:29)
[2021-11-02] MEDS ORDERED: Dextrose 5% in Water 1,000 ML IV PRN (04:29)
[2021-11-02] MEDS ORDERED: HumaLOG 300 UNITS/3 ML VIAL SC PRN ×2 (04:29)
[2021-11-02] MEDS ORDERED: Aspirin 325 MG TAB PO SCH (04:30)
[2021-11-02 05:15] VITALS: BMI 22.7
[2021-11-02 05:19] LABS: Anion Gap 15 mmol/L (10-20); BUN (Urea Nitrogen) 16 mg/dL (8.4-25.7); Calc. Creatinine Clearance 80 mL/min (70-130); Calcium 8.8 mg/dL (7.8-10.44); Carbon Dioxide 24 mmol/L (23-31); Chloride 105 mmol/L (98-107); Estimated GFR 94; Glucose 102 mg/dL (80-115); Sodium 140 mmol/L (136-145)
[2021-11-02 05:25] LABS: Troponin I Less than 0.010 ng/mL (< 0.028)
[2021-11-02] MEDS ORDERED: Nitroglycerin 2% Ointment 1 INCH/1 GM Packet TOP SCH (06:00)
[2021-11-02 06:25] LABS: Hemoglobin A1c 5.9 % (4.0-6.0)
[2021-11-02] MEDS ORDERED: Apixaban 5 MG TAB PO SCH (09:00)
[2021-11-02] MEDS ORDERED: ADENOSINE 60 MG/20 ML VIAL ONE (11:17)
[2021-11-02 11:29] VITALS: BP 132/80; TEMP 97.5
== END 2021-11-02 15:39 | disposition home or self-care (01) ==
LOC: 2SW 22:20
PROVIDERS: ADMIT Internal Medicine; ATTEND Internal Medicine
DX: R07.89 Other chest pain (principal); J18.9 Pneumonia, unspecified organism; I25.10 Atherosclerotic heart disease of native coronary artery without angina pectoris; E11.9 Type 2 diabetes mellitus without complications; E87.5 Hyperkalemia; I42.9 Cardiomyopathy, unspecified; I11.0 Hypertensive heart disease with heart failure; I50.22 Chronic systolic (congestive) heart failure; E78.00 Pure hypercholesterolemia, unspecified; I69.351 Hemiplegia and hemiparesis following cerebral infarction affecting right dominant side; I48.0 Paroxysmal atrial fibrillation; I83.90 Asymptomatic varicose veins of unspecified lower extremity; Z79.01 Long term (current) use of anticoagulants; Z79.84 Long term (current) use of oral hypoglycemic drugs; Z79.899 Other long term (current) drug therapy; Z95.0 Presence of cardiac pacemaker
CPT/HCPCS: 36415; 36416; 78452; 80048; 83036; 84145; 84443; 93017; 94760; 96365; A9500; G0378; J0153; J1956

== ENCOUNTER 2022-03-29 20:35 | Observation (INO) | payer OTHER ==
[2022-03-29] MEDS ORDERED: Diltiazem 125 MG/25 ML ONE (21:07)
[2022-03-29 21:33] LABS: #Eosinphils 0.2 thou/uL (0.0-0.7); #Lymphocytes 1.3 thou/uL (1.20-3.40); #Monocytes 0.4 thou/uL (0.11-0.59); #Neutrophils 2.7 thou/uL (1.40-6.50); %Basophils 0.9 % (0.0-1.0); %Eosinophils 5.3 % (0.0-10.0); %Lymphocytes 27.1 % (21.0-51.0); %Neutrophils 57.7 % (42.0-75.0); Hemoglobin 14.9 g/dL (14.0-18.0); Mean Corpuscular HGB CONC 34.6 g/dL (32.0-36.0); Mean Corpuscular Hemoglobin 33.4 pg (27.0-31.0); Mean Corpuscular Volume 96.6 fl (78.0-98.0); Mean Platelet Volume 8.9 fL (7.4-10.4); Platelet Count 166 10x3/uL (130-400); RBC Distribution Width 11.9 % (11.5-14.5); Red Blood Cell (RBC) Count 4.46 mill/uL (4.70-6.10); White Blood Cell (WBC) Count 4.7 10x3/uL (4.8-10.8)
[2022-03-29 21:53] LABS: ALT (SGPT) 23 U/L (8-55); AST (SGOT) 20 U/L (5-34); Albumin 4.1 g/dL (3.4-4.8); Alkaline Phosphatase 57 U/L (40-110); Anion Gap 14 mmol/L (10-20); BUN (Urea Nitrogen) 17 mg/dL (8.4-25.7); Calc. Creatinine Clearance 0 mL/min (70-130); Calcium 8.7 mg/dL (7.8-10.44); Carbon Dioxide 17 mmol/L (23-31); Chloride 109 mmol/L (98-107); Estimated GFR 97; Globulin 2.6 g/dL (2.4-3.5); Glucose 173 mg/dL (80-115); Potassium 4.2 mmol/L (3.5-5.1); Protein, Total 6.7 g/dL (5.8-8.1); Sodium 136 mmol/L (136-145)
[2022-03-29] MEDS ORDERED: Acetaminophen 325 MG TAB ONE (23:48)
[2022-03-30] MEDS ORDERED: Acetaminophen 325 MG TAB PO PRN (00:08)
[2022-03-30] MEDS ORDERED: Ondansetron PF 4 MG/2 ML Vial IVP PRN (00:08)
[2022-03-30] MEDS ORDERED: Dextrose 5% in Water 1,000 ML IV PRN (00:12)
[2022-03-30] MEDS ORDERED: Dextrose 50% Abboject 50 ML SYRINGE SLOW IVP PRN (00:12)
[2022-03-30] MEDS ORDERED: HumaLOG 300 UNITS/3 ML VIAL SC PRN ×2 (00:12)
[2022-03-30 01:11] LABS: Troponin I Less than 0.010 ng/mL (< 0.028)
[2022-03-30 01:19] LABS: SARS-CoV-2 NAA Rapid Test Not Detected (NotDetected)
[2022-03-30 05:51] LABS: #Eosinphils 0.2 thou/uL (0.0-0.7); #Lymphocytes 1.6 thou/uL (1.20-3.40); #Monocytes 0.4 thou/uL (0.11-0.59); #Neutrophils 2.1 thou/uL (1.40-6.50); %Eosinophils 4.6 % (0.0-10.0); %Lymphocytes 36.7 % (21.0-51.0); %Monocytes 9.5 % (0.0-10.0); %Neutrophils 48.2 % (42.0-75.0); Hemoglobin 14.4 g/dL (14.0-18.0); Mean Corpuscular Hemoglobin 32.4 pg (27.0-31.0); Mean Platelet Volume 8.7 fL (7.4-10.4); Platelet Count 144 10x3/uL (130-400); RBC Distribution Width 11.7 % (11.5-14.5); Red Blood Cell (RBC) Count 4.44 mill/uL (4.70-6.10); White Blood Cell (WBC) Count 4.3 10x3/uL (4.8-10.8)
[2022-03-30 06:16] LABS: Anion Gap 12 mmol/L (10-20); BUN (Urea Nitrogen) 15 mg/dL (8.4-25.7); Calc. Creatinine Clearance 0 mL/min (70-130); Calcium 8.3 mg/dL (7.8-10.44); Carbon Dioxide 19 mmol/L (23-31); Chloride 112 mmol/L (98-107); Estimated GFR 100; Glucose 88 mg/dL (80-115); Magnesium 1.9 mg/dL (1.6-2.6); Potassium 3.7 mmol/L (3.5-5.1); Sodium 139 mmol/L (136-145)
[2022-03-30 06:21] LABS: Troponin I Less than 0.010 ng/mL (< 0.028)
[2022-03-30] MEDS: Carvedilol 3.125 MG TAB PO SCH ×2 (08:30→18:45)
[2022-03-30] MEDS: Furosemide 20 MG TAB PO SCH (08:30)
[2022-03-30] MEDS: Apixaban 5 MG TAB PO SCH ×2 (08:30→21:52)
[2022-03-30] MEDS ORDERED: Furosemide 20 MG/2 ML VIAL SLOW IVP SCH (11:30)
[2022-03-30] MEDS ORDERED: Furosemide 20 MG/2 ML VIAL ONE (13:26)
[2022-03-30 16:04] VITALS: BMI 22.8
[2022-03-30] MEDS: Tamsulosin HCl 0.4 MG CAP PO SCH (21:53)
[2022-03-30] MEDS: Atorvastatin Calcium 40 MG TAB PO SCH (21:53)
[2022-03-31 05:03] LABS: #Eosinphils 0.2 thou/uL (0.0-0.7); #Lymphocytes 1.4 thou/uL (1.20-3.40); #Monocytes 0.6 thou/uL (0.11-0.59); #Neutrophils 5.1 thou/uL (1.40-6.50); %Basophils 0.2 % (0.0-1.0); %Eosinophils 2.9 % (0.0-10.0); %Lymphocytes 19.2 % (21.0-51.0); %Monocytes 7.8 % (0.0-10.0); %Neutrophils 69.9 % (42.0-75.0); Hemoglobin 15.5 g/dL (14.0-18.0); Mean Corpuscular HGB CONC 32.2 g/dL (32.0-36.0); Mean Corpuscular Volume 99.4 fl (78.0-98.0); Mean Platelet Volume 9.1 fL (7.4-10.4); Platelet Count 155 10x3/uL (130-400); RBC Distribution Width 11.9 % (11.5-14.5); Red Blood Cell (RBC) Count 4.84 mill/uL (4.70-6.10); White Blood Cell (WBC) Count 7.3 10x3/uL (4.8-10.8)
[2022-03-31 05:12] LABS: Anion Gap 13 mmol/L (10-20); BUN (Urea Nitrogen) 14 mg/dL (8.4-25.7); Calc. Creatinine Clearance 96 mL/min (70-130); Carbon Dioxide 22 mmol/L (23-31); Chloride 109 mmol/L (98-107); Estimated GFR 100; Glucose 84 mg/dL (80-115); Potassium 3.4 mmol/L (3.5-5.1); Sodium 141 mmol/L (136-145)
[2022-03-31] MEDS ORDERED: FLU VACC QS2022-23(65YR UP)/PF 240 MCG/0.7 ML SYRINGE IM ONE (09:00)
[2022-03-31] MEDS: Furosemide 20 MG TAB PO SCH (10:28)
[2022-03-31] MEDS: Apixaban 5 MG TAB PO SCH ×2 (10:28→21:00)
[2022-03-31] MEDS: Carvedilol 3.125 MG TAB PO SCH ×2 (10:41→17:32)
[2022-03-31] MEDS ORDERED: Nitroglycerin 0.4 MG TAB (25 Tab Bottle) SL PRN (20:26)
[2022-03-31] MEDS ORDERED: Metoprolol Tartrate 25 MG TAB PO SCH (20:30)
[2022-03-31] MEDS ORDERED: Acetaminophen 325 MG TAB PO SCH (20:30)
[2022-03-31] MEDS: Tamsulosin HCl 0.4 MG CAP PO SCH (21:00)
[2022-03-31] MEDS: Atorvastatin Calcium 40 MG TAB PO SCH (21:00)
[2022-04-01 04:31] LABS: #Eosinphils 0.2 thou/uL (0.0-0.7); #Lymphocytes 0.5 thou/uL (1.20-3.40); #Monocytes 0.4 thou/uL (0.11-0.59); %Basophils 0.5 % (0.0-1.0); %Eosinophils 3.7 % (0.0-10.0); %Lymphocytes 9.7 % (21.0-51.0); %Monocytes 6.9 % (0.0-10.0); %Neutrophils 79.1 % (42.0-75.0); Hemoglobin 15.2 g/dL (14.0-18.0); Mean Corpuscular HGB CONC 33.3 g/dL (32.0-36.0); Mean Corpuscular Hemoglobin 32.4 pg (27.0-31.0); Mean Corpuscular Volume 97.3 fl (78.0-98.0); Mean Platelet Volume 8.7 fL (7.4-10.4); Platelet Count 122 10x3/uL (130-400); RBC Distribution Width 11.8 % (11.5-14.5); White Blood Cell (WBC) Count 5.1 10x3/uL (4.8-10.8)
[2022-04-01 04:51] LABS: Anion Gap 13 mmol/L (10-20); BUN (Urea Nitrogen) 15 mg/dL (8.4-25.7); Calc. Creatinine Clearance 94 mL/min (70-130); Calcium 8.8 mg/dL (7.8-10.44); Carbon Dioxide 21 mmol/L (23-31); Chloride 109 mmol/L (98-107); Estimated GFR 99; Glucose 110 mg/dL (80-115); Potassium 3.7 mmol/L (3.5-5.1); Sodium 139 mmol/L (136-145)
[2022-04-01 07:37] VITALS: BP 116/62; TEMP 98
[2022-04-01] MEDS: Carvedilol 3.125 MG TAB PO SCH (09:21)
[2022-04-01] MEDS: Apixaban 5 MG TAB PO SCH (09:21)
[2022-04-01] MEDS: Furosemide 20 MG TAB PO SCH (09:21)
== END 2022-04-01 10:30 | disposition home or self-care (01) ==
LOC: ERS 20:35 → ERHOLD 22:08 → 2NO 03-30 15:46
PROVIDERS: ADMIT Hospitalist; ATTEND Hospitalist
DX: I48.20 Chronic atrial fibrillation, unspecified (principal); I11.0 Hypertensive heart disease with heart failure; I50.23 Acute on chronic systolic (congestive) heart failure; E11.9 Type 2 diabetes mellitus without complications; I25.10 Atherosclerotic heart disease of native coronary artery without angina pectoris; E78.5 Hyperlipidemia, unspecified; N40.0 Benign prostatic hyperplasia without lower urinary tract symptoms; I25.5 Ischemic cardiomyopathy; Z87.891 Personal history of nicotine dependence; Z79.01 Long term (current) use of anticoagulants; Z79.84 Long term (current) use of oral hypoglycemic drugs; Z79.899 Other long term (current) drug therapy; Z95.0 Presence of cardiac pacemaker; Z20.822 Contact with and (suspected) exposure to COVID-19
CPT/HCPCS: 36415; 36416; 71045; 80048; 80053; 83735; 83880; 84484; 85025; 87804; 90471; 90662; 93005; 96365; 96366; G0008; G0378; J1815; J1940; U0002

== ENCOUNTER 2022-05-11 19:32 | Observation (INO) | payer OTHER ==
[~2022-05-11 19:32] MED LIST changes: -CEFAZOLIN 1 GM VIAL ONE; -Gentamicin 80 MG/2 ML VIAL ONE; +Iopamidol-370 76% 500 ML 1 ML ONE; -Lidocaine 1% (PF) 30 ML VIAL ONE; -Midazolam HCl 2 mg/2 ml Vial ONE
[2022-05-11 20:01] LABS: #Basophils 0.1 thou/uL (0.0-0.2); #Eosinphils 0.3 thou/uL (0.0-0.7); #Lymphocytes 1.2 thou/uL (1.20-3.40); #Monocytes 0.4 thou/uL (0.11-0.59); %Basophils 1.6 % (0.0-1.0); %Eosinophils 8.4 % (0.0-10.0); %Lymphocytes 30.7 % (21.0-51.0); %Monocytes 9.5 % (0.0-10.0); %Neutrophils 49.8 % (42.0-75.0); Hemoglobin 15.1 g/dL (14.0-18.0); Mean Corpuscular HGB CONC 32.6 g/dL (32.0-36.0); Mean Corpuscular Hemoglobin 32.4 pg (27.0-31.0); Mean Corpuscular Volume 99.5 fl (78.0-98.0); Mean Platelet Volume 8.5 fL (7.4-10.4); Platelet Count 133 10x3/uL (130-400); RBC Distribution Width 11.8 % (11.5-14.5); Red Blood Cell (RBC) Count 4.65 mill/uL (4.70-6.10)
[2022-05-11 20:25] LABS: ALT (SGPT) 37 U/L (8-55); AST (SGOT) 29 U/L (5-34); Albumin 4.2 g/dL (3.4-4.8); Alkaline Phosphatase 60 U/L (40-110); Anion Gap 15 mmol/L (10-20); BUN (Urea Nitrogen) 13 mg/dL (8.4-25.7); Bilirubin, Total 0.8 mg/dL (0.2-1.2); Calc. Creatinine Clearance 0 mL/min (70-130); Calcium 8.7 mg/dL (7.8-10.44); Carbon Dioxide 17 mmol/L (23-31); Chloride 110 mmol/L (98-107); Estimated GFR 96; Globulin 2.6 g/dL (2.4-3.5); Glucose 128 mg/dL (80-115); Potassium 4.5 mmol/L (3.5-5.1); Protein, Total 6.8 g/dL (5.8-8.1); Sodium 137 mmol/L (136-145)
[2022-05-11 23:21] LABS: Magnesium 1.8 mg/dL (1.6-2.6)
[2022-05-12] MEDS ORDERED: Morphine 4 MG/ML VIAL SLOW IVP PRN (02:42)
[2022-05-12] MEDS ORDERED: Dextrose 5% in Water 1,000 ML IV PRN (03:57)
[2022-05-12] MEDS ORDERED: Acetaminophen 325 MG TAB PO PRN (03:57)
[2022-05-12] MEDS ORDERED: Ondansetron PF 4 MG/2 ML Vial IVP PRN (03:57)
[2022-05-12] MEDS ORDERED: Acetaminophen 650 MG Suppository PR PRN (03:57)
[2022-05-12] MEDS ORDERED: Nitroglycerin 0.4 MG TAB (25 Tab Bottle) SL PRN (03:57)
[2022-05-12] MEDS ORDERED: Dextrose 50% Abboject 50 ML SYRINGE SLOW IVP PRN (03:57)
[2022-05-12] MEDS ORDERED: HumaLOG 300 UNITS/3 ML VIAL SC PRN ×2 (03:57)
[2022-05-12] MEDS ORDERED: Ondansetron ODT 4 MG TAB PO PRN (03:57)
[2022-05-12] MEDS ORDERED: Aspirin 325 mg Enteric Coated Tablet PO SCH (04:30)
[2022-05-12 04:56] LABS: #Eosinphils 0.2 thou/uL (0.0-0.7); #Lymphocytes 1.2 thou/uL (1.20-3.40); #Monocytes 0.3 thou/uL (0.11-0.59); #Neutrophils 2.4 thou/uL (1.40-6.50); %Basophils 0.8 % (0.0-1.0); %Eosinophils 5.5 % (0.0-10.0); %Lymphocytes 29.5 % (21.0-51.0); %Monocytes 8.1 % (0.0-10.0); %Neutrophils 56.2 % (42.0-75.0); Hemoglobin 14.5 g/dL (14.0-18.0); Mean Corpuscular HGB CONC 33.1 g/dL (32.0-36.0); Mean Corpuscular Hemoglobin 32.8 pg (27.0-31.0); Mean Corpuscular Volume 98.8 fl (78.0-98.0); Mean Platelet Volume 9.9 fL (7.4-10.4); Platelet Count 157 10x3/uL (130-400); RBC Distribution Width 11.7 % (11.5-14.5); Red Blood Cell (RBC) Count 4.42 mill/uL (4.70-6.10); White Blood Cell (WBC) Count 4.2 10x3/uL (4.8-10.8)
[2022-05-12 05:10] LABS: Anion Gap 12 mmol/L (10-20); BUN (Urea Nitrogen) 10 mg/dL (8.4-25.7); Calc. Creatinine Clearance 0 mL/min (70-130); Calcium 8.5 mg/dL (7.8-10.44); Carbon Dioxide 19 mmol/L (23-31); Chloride 110 mmol/L (98-107); Estimated GFR 101; Glucose 99 mg/dL (80-115); Magnesium 1.7 mg/dL (1.6-2.6); Potassium 3.7 mmol/L (3.5-5.1); Sodium 137 mmol/L (136-145)
[2022-05-12 05:13] LABS: Troponin I Less than 0.010 ng/mL (< 0.028)
[2022-05-12] MEDS ORDERED: Carvedilol 3.125 MG TAB PO SCH (08:00)
[2022-05-12] MEDS ORDERED: Metoprolol Tartrate 25 MG TAB PO SCH ×2 (09:00→21:00)
[2022-05-12] MEDS ORDERED: Atorvastatin Calcium 40 MG TAB PO SCH (09:00)
[2022-05-12] MEDS ORDERED: Apixaban 5 MG TAB PO SCH (09:00)
[2022-05-12] MEDS ORDERED: Tamsulosin HCl 0.4 MG CAP PO SCH (09:00)
[2022-05-12] MEDS ORDERED: Aspirin Chewable 81 MG TAB PO SCH (09:00)
[2022-05-12] MEDS ORDERED: Metoprolol Tartrate 25 MG TAB ONE (09:08)
[2022-05-12] MEDS ORDERED: Aspirin 325 MG TAB ONE (09:08)
[2022-05-12 13:08] LABS: SARS-CoV-2 NAA Rapid Test Not Detected (NotDetected)
[2022-05-12 15:27] VITALS: BMI 23.1
[2022-05-12 19:28] VITALS: BP 123/70; TEMP 97.9
== END 2022-05-12 22:15 | disposition home or self-care (01) ==
LOC: ERS 19:32 → ERHOLD 05-12 02:43 → 2SW 05-12 15:13
PROVIDERS: ADMIT Physician Assistant; ATTEND Physician Assistant
DX: R07.89 Other chest pain (principal); I11.0 Hypertensive heart disease with heart failure; I50.20 Unspecified systolic (congestive) heart failure; I48.20 Chronic atrial fibrillation, unspecified; N40.0 Benign prostatic hyperplasia without lower urinary tract symptoms; K80.20 Calculus of gallbladder without cholecystitis without obstruction; I70.0 Atherosclerosis of aorta; I42.9 Cardiomyopathy, unspecified; E78.00 Pure hypercholesterolemia, unspecified; I69.351 Hemiplegia and hemiparesis following cerebral infarction affecting right dominant side; Z87.891 Personal history of nicotine dependence; Z79.01 Long term (current) use of anticoagulants; Z79.84 Long term (current) use of oral hypoglycemic drugs; Z79.899 Other long term (current) drug therapy; Z95.0 Presence of cardiac pacemaker; Z20.822 Contact with and (suspected) exposure to COVID-19
CPT/HCPCS: 36415; 36416; 71045; 71275; 74174; 80048; 80053; 83735; 83880; 84484; 85025; 93005; 93306; G0378; Q9967; U0002

== ENCOUNTER 2023-12-20 22:02 | Inpatient (IN) | payer OTHER, MEDICAID ==
[2023-12-20 22:50] LABS: #Basophils 0.04 10x3/uL (0.0-0.2); %Basophils 1.1 % (0.0-1.0); %Monocytes 8.7 % (0.0-10.0); %Neutrophils 69.2 % (42.0-75.0); Hematocrit 44.5 % (42.0-52.0); Hemoglobin 13.5 g/dL (14.0-18.0); Mean Corpuscular HGB CONC 30.3 g/dL (32.0-36.0); Mean Corpuscular Hemoglobin 31.6 pg (27.0-31.0); Mean Corpuscular Volume 104.2 fL (78.0-98.0); Mean Platelet Volume 10.9 fL (7.4-10.4); Platelet Count 126 10x3/uL (130-400); RBC Distribution Width 12.7 % (11.5-14.5); Red Blood Cell (RBC) Count 4.27 mill/uL (4.70-6.10)
[2023-12-20 23:04] LABS: ALT (SGPT) 44 U/L (8-55); AST (SGOT) 30 U/L (5-34); Alkaline Phosphatase 63 U/L (40-110); Anion Gap 13 mmol/L (10-20); BUN (Urea Nitrogen) 18 mg/dL (8.4-25.7); Bilirubin, Total 0.9 mg/dL (0.2-1.2); Calc. Creatinine Clearance 0 mL/min (70-130); Calcium 9.2 mg/dL (7.8-10.44); Carbon Dioxide 19 mmol/L (23-31); Chloride 112 mmol/L (98-107); Estimated GFR 95; Globulin 2.5 g/dL (2.4-3.5); Glucose 91 mg/dL (80-115); Potassium 4.4 mmol/L (3.5-5.1); Protein, Total 6.5 g/dL (5.8-8.1); Sodium 140 mmol/L (136-145)
[2023-12-20 23:09] LABS: Magnesium 2.1 mg/dL (1.6-2.6)
[2023-12-20 23:10] LABS: Troponin I 0.011 ng/mL (< 0.028)
[2023-12-20 23:20] LABS: INR-International Normal Ratio 1.5; PTT 45.3 sec (22.9-36.1); Prothrombin Time 17.9 sec (12.0-14.7)
[2023-12-21] MEDS ORDERED: Ondansetron PF 4 MG/2 ML Vial IVP PRN (00:46)
[2023-12-21] MEDS ORDERED: Acetaminophen 650 MG Suppository PR PRN (00:46)
[2023-12-21] MEDS ORDERED: Ondansetron ODT 4 MG TAB PO PRN (00:46)
[2023-12-21] MEDS ORDERED: Dextrose 50% Abboject 50 ML SYRINGE SLOW IVP PRN (01:33)
[2023-12-21] MEDS ORDERED: Glucagon 1 MG/ML KIT IM PRN (01:33)
[2023-12-21] MEDS ORDERED: Dextrose 5% in Water 1,000 ML IV PRN (01:33)
[2023-12-21] MEDS ORDERED: Atorvastatin Calcium 40 MG TAB ONE ×2 (02:34→02:37)
[2023-12-21 02:37] LABS: Troponin I 0.018 ng/mL (< 0.028)
[2023-12-21] MEDS: Atorvastatin Calcium 40 MG TAB PO SCH ×3 (02:40→20:44)
[2023-12-21 02:41] VITALS: BMI 22.1
[2023-12-21 05:28] LABS: #Basophils Less than 0.03 10x3/uL (0.0-0.2); %Basophils 0.7 % (0.0-1.0); %Eosinophils 3.2 % (0.0-10.0); %Monocytes 8.3 % (0.0-10.0); %Neutrophils 61.8 % (42.0-75.0); Hematocrit 41.2 % (42.0-52.0); Hemoglobin 12.6 g/dL (14.0-18.0); Mean Corpuscular HGB CONC 30.6 g/dL (32.0-36.0); Mean Corpuscular Hemoglobin 31.2 pg (27.0-31.0); Mean Platelet Volume 11.7 fL (7.4-10.4); Platelet Count 106 10x3/uL (130-400); RBC Distribution Width 12.7 % (11.5-14.5); Red Blood Cell (RBC) Count 4.04 mill/uL (4.70-6.10)
[2023-12-21 05:29] LABS: Macrocytosis SLIGHT = 6-15 cells HPF (0-5); Platelet Adequacy Comment Platelets Decreased
[2023-12-21 05:32] LABS: Hemoglobin A1c 5.6 % (4.0-6.0)
[2023-12-21 05:32] LABS: Anion Gap 12 mmol/L (10-20); BUN (Urea Nitrogen) 15 mg/dL (8.4-25.7); Calc. Creatinine Clearance 87 mL/min (70-130); Carbon Dioxide 20 mmol/L (23-31); Chloride 112 mmol/L (98-107); Potassium 3.6 mmol/L (3.5-5.1); Sodium 140 mmol/L (136-145)
[2023-12-21 05:33] LABS: Calcium 8.7 mg/dL (7.8-10.44); Estimated GFR 97; Glucose 174 mg/dL (80-115)
[2023-12-21 05:36] LABS: Troponin I 0.012 ng/mL (< 0.028)
[2023-12-21] MEDS: Aspirin Chewable 81 MG TAB PO SCH (09:24)
[2023-12-21] MEDS: Sacubitril 24MG/Valsartan 26 MG TAB PO SCH (11:00)
[2023-12-21] MEDS: Aspirin 81 mg Enteric Coated Tablet PO SCH (11:01)
[2023-12-21] MEDS: Metoprolol Tartrate 25 MG TAB PO SCH (11:01)
[2023-12-21] MEDS: Pantoprazole DR 40 MG TAB PO SCH (11:01)
[2023-12-21] MEDS: Tamsulosin HCl 0.4 MG CAP PO SCH (11:01)
[2023-12-21] MEDS: Furosemide 40 MG (4 mL) VIAL SLOW IVP SCH ×2 (11:19→16:16)
[2023-12-21] MEDS: Enoxaparin 40 MG (0.4 mL) SYRINGE SC SCH (11:19)
[2023-12-21] MEDS: Perflutren Lipid Microspheres 1.1 MG/ML VIAL ONE (15:53)
[2023-12-21] MEDS: Acetaminophen 325 MG TAB PO PRN (20:47)
[2023-12-21] MEDS: Methyl Salicylate/Menthol 85 GM TUBE TOP PRN (22:46)
[2023-12-22 05:24] LABS: Anion Gap 10 mmol/L (10-20); BUN (Urea Nitrogen) 20 mg/dL (8.4-25.7); Calc. Creatinine Clearance 78 mL/min (70-130); Calcium 9.2 mg/dL (7.8-10.44); Carbon Dioxide 30 mmol/L (23-31); Chloride 106 mmol/L (98-107); Estimated GFR 92; Glucose 89 mg/dL (80-115); Potassium 3.7 mmol/L (3.5-5.1); Sodium 142 mmol/L (136-145)
[2023-12-22] MEDS: Insulin Lispro 100 UNIT/ML 10 ML VIAL SC PRN (17:29)
[2023-12-23 03:59] LABS: #Basophils 0.05 10x3/uL (0.0-0.2); %Eosinophils 3.7 % (0.0-10.0); %Lymphocytes 26.6 % (21.0-51.0); %Monocytes 12.5 % (0.0-10.0); Hematocrit 44.7 % (42.0-52.0); Hemoglobin 14.5 g/dL (14.0-18.0); Mean Corpuscular HGB CONC 32.4 g/dL (32.0-36.0); Mean Corpuscular Hemoglobin 31.8 pg (27.0-31.0); Mean Platelet Volume 11.4 fL (7.4-10.4); Platelet Count 165 10x3/uL (130-400); RBC Distribution Width 12.6 % (11.5-14.5); Red Blood Cell (RBC) Count 4.56 mill/uL (4.70-6.10)
[2023-12-23 04:12] LABS: Anion Gap 13 mmol/L (10-20); BUN (Urea Nitrogen) 19 mg/dL (8.4-25.7); Calc. Creatinine Clearance 84 mL/min (70-130); Calcium 9.3 mg/dL (7.8-10.44); Carbon Dioxide 28 mmol/L (23-31); Chloride 102 mmol/L (98-107); Estimated GFR 96; Glucose 95 mg/dL (80-115); Potassium 3.1 mmol/L (3.5-5.1); Sodium 140 mmol/L (136-145)
[2023-12-23] MEDS ORDERED: Electrolyte Replacement Protocol 1 EACH FS PRN (05:54)
[2023-12-23] MEDS: Potassium Chloride 20 MEQ TAB PO SCH ×2 (06:16→09:08)
[2023-12-23] MEDS: Apixaban 5 MG TAB PO SCH (09:09)
[2023-12-23] MEDS: Magnesium 2 GM/50 ML(in water) 2 GM in Premix 1 BAG IVPB SCH (09:10)
[2023-12-23] MEDS: Dapagliflozin Propanediol 10 MG TAB PO SCH (10:20)
[2023-12-24 04:58] LABS: #Basophils 0.05 10x3/uL (0.0-0.2); %Basophils 0.8 % (0.0-1.0); %Eosinophils 2.7 % (0.0-10.0); %Lymphocytes 22.8 % (21.0-51.0); %Monocytes 10.8 % (0.0-10.0); %Neutrophils 62.7 % (42.0-75.0); Hematocrit 47.8 % (42.0-52.0); Hemoglobin 15.6 g/dL (14.0-18.0); Mean Corpuscular HGB CONC 32.6 g/dL (32.0-36.0); Mean Corpuscular Hemoglobin 31.8 pg (27.0-31.0); Mean Corpuscular Volume 97.6 fL (78.0-98.0); Mean Platelet Volume 10.7 fL (7.4-10.4); Platelet Count 161 10x3/uL (130-400); RBC Distribution Width 12.5 % (11.5-14.5)
[2023-12-24 05:13] LABS: Anion Gap 14 mmol/L (10-20); BUN (Urea Nitrogen) 23 mg/dL (8.4-25.7); Calc. Creatinine Clearance 79 mL/min (70-130); Calcium 9.1 mg/dL (7.8-10.44); Carbon Dioxide 23 mmol/L (23-31); Chloride 107 mmol/L (98-107); Estimated GFR 94; Glucose 103 mg/dL (80-115); Potassium 3.8 mmol/L (3.5-5.1); Sodium 140 mmol/L (136-145)
[2023-12-24] MEDS: Furosemide 40 MG TAB PO SCH (08:57)
[2023-12-24] MEDS: Benzonatate 100 MG CAP PO PRN (20:58)
[2023-12-24] MEDS: GUAIFENESIN SF SOLN 200 MG/10 ML UDCUP PO PRN (20:58)
[2023-12-25 04:27] LABS: #Basophils 0.04 10x3/uL (0.0-0.2); %Basophils 0.7 % (0.0-1.0); %Eosinophils 2.7 % (0.0-10.0); %Lymphocytes 23.5 % (21.0-51.0); %Monocytes 9.9 % (0.0-10.0); Hemoglobin 15.8 g/dL (14.0-18.0); Mean Corpuscular HGB CONC 32.9 g/dL (32.0-36.0); Mean Corpuscular Hemoglobin 31.3 pg (27.0-31.0); Mean Platelet Volume 11.3 fL (7.4-10.4); Platelet Count 166 10x3/uL (130-400); RBC Distribution Width 12.5 % (11.5-14.5); Red Blood Cell (RBC) Count 5.05 mill/uL (4.70-6.10)
[2023-12-25 04:43] LABS: Anion Gap 13 mmol/L (10-20); BUN (Urea Nitrogen) 29 mg/dL (8.4-25.7); Calc. Creatinine Clearance 76 mL/min (70-130); Carbon Dioxide 22 mmol/L (23-31); Chloride 108 mmol/L (98-107); Estimated GFR 94; Glucose 107 mg/dL (80-115); Potassium 3.6 mmol/L (3.5-5.1); Sodium 139 mmol/L (136-145)
[2023-12-25 17:37] VITALS: TEMP 97.6
[2023-12-25 20:24] VITALS: BP 109/73
== END 2023-12-25 19:59 | disposition home or self-care (01) | DRG 291 ==
LOC: ERS 22:02 → ERHOLD 12-21 00:45 → OBSVTOIN 12-21 00:45 → 2SW 12-21 06:43 → OBS 12-25 10:42
PROVIDERS: ADMIT Family Medicine; ATTEND Hospitalist
DX: I11.0 Hypertensive heart disease with heart failure (principal); I50.23 Acute on chronic systolic (congestive) heart failure; I48.20 Chronic atrial fibrillation, unspecified; D61.818 Other pancytopenia; E11.9 Type 2 diabetes mellitus without complications; I42.8 Other cardiomyopathies; E87.6 Hypokalemia; I25.10 Atherosclerotic heart disease of native coronary artery without angina pectoris; N40.0 Benign prostatic hyperplasia without lower urinary tract symptoms; Z86.73 Personal history of transient ischemic attack (TIA), and cerebral infarction without residual deficits; Z95.0 Presence of cardiac pacemaker; Z95.5 Presence of coronary angioplasty implant and graft; Z98.890 Other specified postprocedural states; Z79.84 Long term (current) use of oral hypoglycemic drugs; Z79.82 Long term (current) use of aspirin
CPT/HCPCS: 0439T; 36415; 36416; 71045; 80048; 80053; 83036; 83735; 83880; 84443; 84484; 85025; 85610; 85730; 93005; 97139; J1650; J1815; J1940; J3475; Q9957

== ENCOUNTER 2024-01-07 03:05 | Emergency (ER) | payer OTHER, MEDICAID ==
[2024-01-07 05:36] LABS: #Basophils 0.05 10x3/uL (0.0-0.2); %Basophils 0.9 % (0.0-1.0); %Eosinophils 0.5 % (0.0-10.0); %Monocytes 7.5 % (0.0-10.0); %Neutrophils 74.8 % (42.0-75.0); Hematocrit 49.1 % (42.0-52.0); Hemoglobin 16.4 g/dL (14.0-18.0); Mean Corpuscular HGB CONC 33.4 g/dL (32.0-36.0); Mean Corpuscular Volume 95.7 fL (78.0-98.0); Mean Platelet Volume 10.7 fL (7.4-10.4); Platelet Count 186 10x3/uL (130-400); RBC Distribution Width 12.3 % (11.5-14.5); Red Blood Cell (RBC) Count 5.13 mill/uL (4.70-6.10)
[2024-01-07 05:45] LABS: ALT (SGPT) 48 U/L (8-55); AST (SGOT) 37 U/L (5-34); Albumin 4.2 g/dL (3.4-4.8); Alkaline Phosphatase 75 U/L (40-110); Anion Gap 15 mmol/L (10-20); BUN (Urea Nitrogen) 23 mg/dL (8.4-25.7); Bilirubin, Total 1.3 mg/dL (0.2-1.2); Calc. Creatinine Clearance 0 mL/min (70-130); Calcium 9.3 mg/dL (7.8-10.44); Carbon Dioxide 20 mmol/L (23-31); Chloride 105 mmol/L (98-107); Estimated GFR 71; Globulin 3.3 g/dL (2.4-3.5); Glucose 109 mg/dL (80-115); Potassium 3.4 mmol/L (3.5-5.1); Protein, Total 7.5 g/dL (5.8-8.1); Sodium 137 mmol/L (136-145)
[2024-01-07 05:50] LABS: Troponin I 0.013 ng/mL (< 0.028)
[2024-01-07 09:56] LABS: Troponin I 0.013 ng/mL (< 0.028)
[2024-01-07] MEDS ORDERED: Bacitracin 1 PK ONE (10:09)
[2024-01-07] MEDS ORDERED: Acetaminophen 500 MG TAB ONE (13:45)
[2024-01-07] MEDS ORDERED: Boostrix 0.5 ML (Tdap) VIAL (>/=7 yrs of age) ONE (15:21)
== END 2024-01-07 15:57 | disposition home or self-care (01) ==
LOC: ERS 03:05
DX: T82.897A Other specified complication of cardiac prosthetic devices, implants and grafts, initial encounter (principal); I11.0 Hypertensive heart disease with heart failure; I50.9 Heart failure, unspecified; I48.91 Unspecified atrial fibrillation; E11.9 Type 2 diabetes mellitus without complications; I63.9 Cerebral infarction, unspecified; N40.1 Benign prostatic hyperplasia with lower urinary tract symptoms; Z55.6 Problems related to health literacy; Z95.0 Presence of cardiac pacemaker; Z79.899 Other long term (current) drug therapy
CPT/HCPCS: 36415; 71045; 80053; 83880; 84484; 85025; 90471; 90715; 93005

== ENCOUNTER 2024-03-25 00:36 | Inpatient (IN) | payer OTHER ==
[2024-03-25] MEDS ORDERED: Dextrose 5% in Water 1,000 ML IV PRN (02:19)
[2024-03-25] MEDS ORDERED: Insulin Lispro 100 UNIT/ML 10 ML VIAL SC PRN (02:19)
[2024-03-25] MEDS ORDERED: Glucagon 1 MG/ML KIT IM PRN (02:19)
[2024-03-25] MEDS ORDERED: Ondansetron ODT 4 MG TAB PO PRN (02:19)
[2024-03-25] MEDS ORDERED: Dextrose 50% Abboject 50 ML SYRINGE SLOW IVP PRN (02:19)
[2024-03-25] MEDS ORDERED: Ondansetron PF 4 MG/2 ML Vial IVP PRN (02:19)
[2024-03-25] MEDS ORDERED: Nitroglycerin 0.4 MG TAB (25 Tab Bottle) SL PRN (03:40)
[2024-03-25] MEDS: Morphine 2 MG/ML VIAL SLOW IVP SCH (03:52)
[2024-03-25 04:09] LABS: #Basophils 0.04 10x3/uL (0.0-0.2); #Eosinophils Less than 0.03 10x3/uL (0.0-0.7); %Basophils 0.6 % (0.0-1.0); %Eosinophils 0.2 % (0.0-10.0); %Lymphocytes 6.1 % (21.0-51.0); %Monocytes 1.3 % (0.0-10.0); %Neutrophils 91.3 % (42.0-75.0); Hematocrit 45.7 % (42.0-52.0); Hemoglobin 15.2 g/dL (14.0-18.0); Mean Corpuscular HGB CONC 33.3 g/dL (32.0-36.0); Mean Corpuscular Hemoglobin 31.8 pg (27.0-31.0); Mean Corpuscular Volume 95.6 fL (78.0-98.0); Mean Platelet Volume 10.4 fL (7.4-10.4); Platelet Count 184 10x3/uL (130-400); RBC Distribution Width 12.6 % (11.5-14.5); Red Blood Cell (RBC) Count 4.78 mill/uL (4.70-6.10)
[2024-03-25] MEDS: Furosemide 20 MG (2 mL) VIAL SLOW IVP SCH (05:48)
[2024-03-25 05:55] LABS: Troponin I Less than 0.010 ng/mL (< 0.028)
[2024-03-25 06:14] LABS: Anion Gap 14 mmol/L (10-20); BUN (Urea Nitrogen) 20 mg/dL (8.4-25.7); Calc. Creatinine Clearance 0 mL/min (70-130); Calcium 9.6 mg/dL (7.8-10.44); Carbon Dioxide 23 mmol/L (23-31); Chloride 106 mmol/L (98-107); Estimated GFR 91; Glucose 179 mg/dL (80-115); Potassium 3.9 mmol/L (3.5-5.1); Sodium 139 mmol/L (136-145)
[2024-03-25] MEDS: Insulin Lispro 100 UNIT/ML 10 ML VIAL SC PRN (06:15)
[2024-03-25 07:14] LABS: Troponin I Less than 0.010 ng/mL (< 0.028)
[2024-03-25] MEDS: Metoprolol Succinate XL 25 MG ER.TAB PO SCH (07:54)
[2024-03-25] MEDS: metFORMIN 500 MG TAB PO SCH (07:55)
[2024-03-25] MEDS: Aspirin 81 mg Enteric Coated Tablet PO SCH (07:55)
[2024-03-25] MEDS: guaiFENesin ER 600 MG TAB PO SCH (07:55)
[2024-03-25] MEDS: Pantoprazole 40 MG DR.TAB PO SCH (07:55)
[2024-03-25] MEDS: Apixaban 5 MG TAB PO SCH (07:55)
[2024-03-25] MEDS: Tamsulosin HCl 0.4 MG CAP PO SCH (07:55)
[2024-03-25] MEDS: Dapagliflozin Propanediol 10 MG TAB PO SCH (07:55)
[2024-03-25] MEDS: FLU (Fluad Triv) TS24-25 (65UP)/MF59C/PF 45 MCG/0.5 ML Syringe IM ONE (07:55)
[2024-03-25] MEDS: Sacubitril 24MG/Valsartan 26 MG TAB PO SCH (07:55)
[2024-03-25] MEDS ORDERED: Electrolyte Replacement Protocol 1 EACH FS ONE (08:52)
[2024-03-25] MEDS ORDERED: Enoxaparin 40 MG (0.4 mL) SYRINGE SC SCH (09:00)
[2024-03-25] MEDS: dilTIAZem 125 MG in Sodium Chloride 0.9% 100 ML IVPB SCH (09:26)
[2024-03-25] MEDS: Atorvastatin Calcium 40 MG TAB PO SCH (09:26)
[2024-03-25] MEDS ORDERED: Electrolyte Replacement Protocol FS PRN (09:30)
[2024-03-25] MEDS: dilTIAZem 25 MG/5 ML VIAL SLOW IVP SCH (09:32)
[2024-03-25] MEDS ORDERED: dilTIAZem 125 MG in Sodium Chloride 0.9% 100 ML IVPB SCH (15:22)
[2024-03-26 03:49] LABS: #Basophils Less than 0.03 10x3/uL (0.0-0.2); #Eosinophils Less than 0.03 10x3/uL (0.0-0.7); %Basophils 0.2 % (0.0-1.0); %Lymphocytes 10.5 % (21.0-51.0); %Monocytes 7.3 % (0.0-10.0); %Neutrophils 81.7 % (42.0-75.0); Hematocrit 47.3 % (42.0-52.0); Hemoglobin 15.6 g/dL (14.0-18.0); Mean Corpuscular Hemoglobin 31.3 pg (27.0-31.0); Mean Platelet Volume 10.4 fL (7.4-10.4); Platelet Count 190 10x3/uL (130-400); RBC Distribution Width 12.9 % (11.5-14.5); Red Blood Cell (RBC) Count 4.98 mill/uL (4.70-6.10)
[2024-03-26 04:08] LABS: Anion Gap 15 mmol/L (10-20); BUN (Urea Nitrogen) 36 mg/dL (8.4-25.7); Calc. Creatinine Clearance 63 mL/min (70-130); Calcium 9.5 mg/dL (7.8-10.44); Carbon Dioxide 23 mmol/L (23-31); Chloride 105 mmol/L (98-107); Estimated GFR 73; Glucose 123 mg/dL (80-115); Magnesium 2.4 mg/dL (1.6-2.6); Potassium 5.1 mmol/L (3.5-5.1); Sodium 138 mmol/L (136-145)
[2024-03-26] MEDS: Furosemide 20 MG (2 mL) VIAL SLOW IVP SCH (08:25)
[2024-03-26] MEDS ORDERED: Guaifenesin DM 100-10/5 ML UDCUP PO PRN (08:34)
[2024-03-26] MEDS ORDERED: guaiFENesin ER 600 MG TAB PO SCH (09:00)
[2024-03-26] MEDS: Benzonatate 100 MG CAP PO PRN (09:34)
[2024-03-26] MEDS: Cholecalciferol 1,000 UNITS (25 MCG) TAB PO SCH (21:33)
[2024-03-27 04:23] LABS: #Basophils 0.06 10x3/uL (0.0-0.2); %Lymphocytes 20.3 % (21.0-51.0); %Monocytes 8.9 % (0.0-10.0); %Neutrophils 68.6 % (42.0-75.0); Hemoglobin 15.4 g/dL (14.0-18.0); Mean Corpuscular HGB CONC 33.5 g/dL (32.0-36.0); Mean Corpuscular Hemoglobin 31.8 pg (27.0-31.0); Mean Corpuscular Volume 94.8 fL (78.0-98.0); Mean Platelet Volume 10.6 fL (7.4-10.4); Platelet Count 180 10x3/uL (130-400); Red Blood Cell (RBC) Count 4.85 mill/uL (4.70-6.10)
[2024-03-27 04:54] LABS: Anion Gap 14 mmol/L (10-20); BUN (Urea Nitrogen) 38 mg/dL (8.4-25.7); Calc. Creatinine Clearance 80 mL/min (70-130); Carbon Dioxide 22 mmol/L (23-31); Chloride 107 mmol/L (98-107); Potassium 3.6 mmol/L (3.5-5.1); Sodium 139 mmol/L (136-145)
[2024-03-27 04:55] LABS: Calcium 8.9 mg/dL (7.8-10.44); Estimated GFR 95; Glucose 110 mg/dL (80-115); Magnesium 2.4 mg/dL (1.6-2.6)
[2024-03-27] MEDS: Furosemide 20 MG TAB PO SCH (08:13)
[2024-03-27] MEDS: Acetaminophen 325 MG TAB PO PRN (08:18)
[2024-03-27 12:34] VITALS: BP 119/78; TEMP 98
[2024-03-27] MEDS: FLU (Fluad Triv) TS24-25 (65UP)/MF59C/PF 45 MCG/0.5 ML Syringe IM ONE (13:14)
== END 2024-03-27 15:05 | disposition home or self-care (01) | DRG 291 ==
LOC: PCU 01:29 → INTOOBSV 01:29 → OBSVTOIN 10:49
PROVIDERS: ADMIT Internal Medicine; ATTEND Internal Medicine
DX: I11.0 Hypertensive heart disease with heart failure (principal); I50.23 Acute on chronic systolic (congestive) heart failure; J96.01 Acute respiratory failure with hypoxia; I48.20 Chronic atrial fibrillation, unspecified; I27.20 Pulmonary hypertension, unspecified; I25.10 Atherosclerotic heart disease of native coronary artery without angina pectoris; E78.5 Hyperlipidemia, unspecified; E11.65 Type 2 diabetes mellitus with hyperglycemia; I34.0 Nonrheumatic mitral (valve) insufficiency; N40.0 Benign prostatic hyperplasia without lower urinary tract symptoms; Z79.01 Long term (current) use of anticoagulants; Z79.899 Other long term (current) drug therapy; Z86.73 Personal history of transient ischemic attack (TIA), and cerebral infarction without residual deficits; Z95.0 Presence of cardiac pacemaker; Z95.5 Presence of coronary angioplasty implant and graft; Z79.84 Long term (current) use of oral hypoglycemic drugs
CPT/HCPCS: 36415; 36416; 70450; 71045; 71250; 80048; 80053; 83690; 83735; 83880; 84443; 84484; 85025; 90653; 93005; 94760; 96365; 96374; 96375; 97139; G0378; J1815; J1940; J2272; J2919

== ENCOUNTER 2024-12-12 20:10 | Inpatient (IN) | payer OTHER ==
[2024-12-12 20:50] LABS: #Basophils 0.06 10x3/uL (0.0-0.2); #Eosinophils 0.33 10x3/uL (0.0-0.7); #Monocytes 0.29 10x3/uL (0.11-0.59); #Neutrophils 1.67 10x3/uL (1.40-6.50); %Basophils 1.7 % (0.0-1.0); %Eosinophils 9.3 % (0.0-10.0); %Lymphocytes 33.8 % (21.0-51.0); %Monocytes 8.2 % (0.0-10.0); %Neutrophils 47.0 % (42.0-75.0); Hematocrit 44.7 % (42.0-52.0); Hemoglobin 13.2 g/dL (14.0-18.0); Mean Corpuscular Hemoglobin 27.3 pg (27.0-31.0); Mean Corpuscular Volume 92.5 fL (78.0-98.0); Platelet Count 168 10x3/uL (130-400); Red Blood Cell (RBC) Count 4.83 mill/uL (4.70-6.10); White Blood Cell (WBC) Count 3.55 10x3/uL (4.8-10.8)
[2024-12-12 21:04] LABS: ALT (SGPT) 39 U/L (Less than 45); AST (SGOT) 31 U/L (11-34); Albumin 4.8 g/dL (3.1-4.5); Alkaline Phosphatase 84 U/L (40-110); Anion Gap 15 mmol/L (10-20); BUN (Urea Nitrogen) 15 mg/dL (8.4-25.7); Bilirubin, Total 0.6 mg/dL (0.3-1.2); Calc. Creatinine Clearance 0 mL/min (70-130); Calcium 9.5 mg/dL (7.8-10.44); Carbon Dioxide 23 mmol/L (23-31); Chloride 111 mmol/L (98-107); Globulin 2.9 g/dL (2.4-3.5); Glucose 168 mg/dL (80-115); Lipase 43 U/L (8-78); Magnesium 2.1 mg/dL (1.6-2.6); Potassium 4.2 mmol/L (3.5-5.1); Sodium 145 mmol/L (136-145)
[2024-12-12] MEDS ORDERED: Aspirin Chewable 81 MG TAB ONE (23:13)
[2024-12-12] MEDS ORDERED: Senokot S 8.6-50 MG TAB PO PRN (23:16)
[2024-12-12] MEDS ORDERED: Calcium Carbonate 500 MG ChewTAB PO PRN (23:16)
[2024-12-12] MEDS ORDERED: Nitroglycerin 0.4 MG TAB 1 EACH ONE (23:50)
[2024-12-13 00:33] VITALS: BMI 22.8
[2024-12-13] MEDS: Acetaminophen 325 MG TAB PO PRN (00:56)
[2024-12-13 07:30] LABS: Anion Gap 12 mmol/L (10-20); BUN (Urea Nitrogen) 16 mg/dL (8.4-25.7); Calc. Creatinine Clearance 85 mL/min (70-130); Calcium 8.7 mg/dL (7.8-10.44); Carbon Dioxide 17 mmol/L (23-31); Chloride 118 mmol/L (98-107); Glucose 89 mg/dL (80-115); Potassium 3.8 mmol/L (3.5-5.1); Sodium 143 mmol/L (136-145)
[2024-12-13 08:31] LABS: Cardiac Risk 2.9 (Less than 4.5); Cholesterol 112.0 mg/dl (< 200 Desired); HDL Cholesterol 39.0 mg/dL (>60 Neg Risk); LDL Cholesterol, Calculated 55.0 mg/dL; Triglycerides 92.0 mg/dL (Less than 150)
[2024-12-13 08:49] LABS: Digoxin Less than 0.19 ng/mL (0.8-2.0)
[2024-12-13] MEDS ORDERED: Senokot S 8.6-50 MG TAB PO PRN (08:58)
[2024-12-13] MEDS ORDERED: Digoxin 0.05 MG/ML Oral Solution PO SCH (09:00)
[2024-12-13] MEDS: Aspirin 81 mg Enteric Coated Tablet PO SCH (09:34)
[2024-12-13] MEDS: Dapagliflozin Propanediol 10 MG TAB PO SCH (09:34)
[2024-12-13] MEDS: Furosemide 40 MG TAB PO SCH (09:34)
[2024-12-13] MEDS: Digoxin 0.25 MG TAB PO SCH (09:34)
[2024-12-13] MEDS: Apixaban 5 MG TAB PO SCH (09:34)
[2024-12-13] MEDS: Sacubitril 24MG/Valsartan 26 MG TAB PO SCH (09:40)
[2024-12-13] MEDS: Furosemide 40 MG (4 mL) VIAL SLOW IVP SCH (19:24)
[2024-12-13] MEDS: Spironolactone 25 MG TAB PO SCH (19:25)
[2024-12-13] MEDS: Melatonin 3 MG TAB PO PRN (20:32)
[2024-12-13 23:38] LABS: #Basophils 0.05 10x3/uL (0.0-0.2); #Eosinophils 0.31 10x3/uL (0.0-0.7); #Monocytes 0.46 10x3/uL (0.11-0.59); #Neutrophils 2.46 10x3/uL (1.40-6.50); %Basophils 1.2 % (0.0-1.0); %Eosinophils 7.3 % (0.0-10.0); %Lymphocytes 22.5 % (21.0-51.0); %Monocytes 10.8 % (0.0-10.0); %Neutrophils 57.7 % (42.0-75.0); Hematocrit 43.2 % (42.0-52.0); Hemoglobin 13.1 g/dL (14.0-18.0); Mean Corpuscular Hemoglobin 27.3 pg (27.0-31.0); Mean Corpuscular Volume 90.0 fL (78.0-98.0); Platelet Count 161 10x3/uL (130-400); Red Blood Cell (RBC) Count 4.80 mill/uL (4.70-6.10); White Blood Cell (WBC) Count 4.26 10x3/uL (4.8-10.8)
[2024-12-13 23:54] LABS: Anion Gap 14 mmol/L (10-20); BUN (Urea Nitrogen) 13 mg/dL (8.4-25.7); Calc. Creatinine Clearance 103 mL/min (70-130); Calcium 9.1 mg/dL (7.8-10.44); Carbon Dioxide 20 mmol/L (23-31); Chloride 109 mmol/L (98-107); Glucose 123 mg/dL (80-115); Magnesium 2.0 mg/dL (1.6-2.6); Potassium 3.4 mmol/L (3.5-5.1); Sodium 140 mmol/L (136-145)
[2024-12-14] MEDS: Digoxin 0.25 MG TAB PO SCH (00:07)
[2024-12-14] MEDS: Furosemide 40 MG (4 mL) VIAL SLOW IVP SCH (06:15)
[2024-12-14] MEDS: Magnesium 2 GM/50 ML(in water) 2 GM in Premix 1 BAG IVPB SCH (09:20)
[2024-12-14] MEDS: Metoprolol Succinate XL 50 MG ER.TAB PO SCH (09:21)
[2024-12-14] MEDS: Spironolactone 25 MG TAB PO SCH (09:25)
[2024-12-14] MEDS: PNEUMOC 20-VAL CONJ-DIP CRM/PF 0.5 ML SYRINGE IM ONE (09:27)
[2024-12-14] MEDS: FLU (Fluad Triv) 25-26 (65UP)PF 45 MCG/0.5 ML Syringe IM ONE (09:58)
[2024-12-14] MEDS: Furosemide 20 MG TAB PO SCH (14:15)
[2024-12-15] MEDS: Metoprolol Tartrate 5 MG (5 mL) VIAL IVP SCH (02:05)
[2024-12-15 03:11] LABS: #Basophils 0.06 10x3/uL (0.0-0.2); #Eosinophils 0.23 10x3/uL (0.0-0.7); #Monocytes 0.61 10x3/uL (0.11-0.59); #Neutrophils 5.81 10x3/uL (1.40-6.50); %Basophils 0.8 % (0.0-1.0); %Eosinophils 3.1 % (0.0-10.0); %Lymphocytes 10.4 % (21.0-51.0); %Monocytes 8.1 % (0.0-10.0); %Neutrophils 77.5 % (42.0-75.0); Hematocrit 50.8 % (42.0-52.0); Hemoglobin 15.7 g/dL (14.0-18.0); Mean Corpuscular Hemoglobin 27.5 pg (27.0-31.0); Mean Corpuscular Volume 89.1 fL (78.0-98.0); Platelet Count 180 10x3/uL (130-400); Red Blood Cell (RBC) Count 5.70 mill/uL (4.70-6.10); White Blood Cell (WBC) Count 7.50 10x3/uL (4.8-10.8)
[2024-12-15 03:26] LABS: Anion Gap 16 mmol/L (10-20); BUN (Urea Nitrogen) 24 mg/dL (8.4-25.7); Calc. Creatinine Clearance 77 mL/min (70-130); Calcium 9.4 mg/dL (7.8-10.44); Carbon Dioxide 21 mmol/L (23-31); Chloride 106 mmol/L (98-107); Glucose 127 mg/dL (80-115); Magnesium 2.2 mg/dL (1.6-2.6); Potassium 3.6 mmol/L (3.5-5.1); Sodium 139 mmol/L (136-145)
[2024-12-15] MEDS ORDERED: Furosemide 20 MG TAB PO SCH (09:00)
[2024-12-15] MEDS: metFORMIN 500 MG TAB PO SCH (16:53)
[2024-12-15] MEDS: Metoprolol Succinate XL 50 MG ER.TAB PO SCH (20:48)
[2024-12-15] MEDS: Transdermal Patch Removal TOP SCH (20:58)
[2024-12-16 05:25] LABS: #Basophils 0.05 10x3/uL (0.0-0.2); #Eosinophils 0.25 10x3/uL (0.0-0.7); #Monocytes 0.65 10x3/uL (0.11-0.59); #Neutrophils 3.84 10x3/uL (1.40-6.50); %Basophils 0.8 % (0.0-1.0); %Eosinophils 4.2 % (0.0-10.0); %Lymphocytes 19.1 % (21.0-51.0); %Monocytes 11.0 % (0.0-10.0); %Neutrophils 64.7 % (42.0-75.0); Hematocrit 49.5 % (42.0-52.0); Hemoglobin 15.5 g/dL (14.0-18.0); Mean Corpuscular Hemoglobin 27.6 pg (27.0-31.0); Mean Corpuscular Volume 88.2 fL (78.0-98.0); Platelet Count 183 10x3/uL (130-400); Red Blood Cell (RBC) Count 5.61 mill/uL (4.70-6.10); White Blood Cell (WBC) Count 5.93 10x3/uL (4.8-10.8)
[2024-12-16 05:47] LABS: Anion Gap 18 mmol/L (10-20); BUN (Urea Nitrogen) 28 mg/dL (8.4-25.7); Calc. Creatinine Clearance 84 mL/min (70-130); Calcium 9.0 mg/dL (7.8-10.44); Carbon Dioxide 14 mmol/L (23-31); Chloride 111 mmol/L (98-107); Glucose 114 mg/dL (80-115); Potassium 3.7 mmol/L (3.5-5.1); Sodium 139 mmol/L (136-145)
[2024-12-16] MEDS: Transdermal Patch Removal TOP SCH (12:15)
[2024-12-16 15:30] VITALS: TEMP 97.5
[2024-12-16 20:01] VITALS: BP 106/58
== END 2024-12-16 20:02 | disposition home or self-care (01) | DRG 313 ==
LOC: ERS 20:10 → OBS 23:06 → OBSVTOIN 12-14 13:50
PROVIDERS: ADMIT Internal Medicine; ATTEND Hospitalist
DX: R07.9 Chest pain, unspecified (principal); I50.23 Acute on chronic systolic (congestive) heart failure; I48.20 Chronic atrial fibrillation, unspecified; I42.8 Other cardiomyopathies; I25.10 Atherosclerotic heart disease of native coronary artery without angina pectoris; E78.5 Hyperlipidemia, unspecified; E87.6 Hypokalemia; I11.0 Hypertensive heart disease with heart failure; N40.0 Benign prostatic hyperplasia without lower urinary tract symptoms; I27.20 Pulmonary hypertension, unspecified; I35.1 Nonrheumatic aortic (valve) insufficiency; I34.0 Nonrheumatic mitral (valve) insufficiency; I36.1 Nonrheumatic tricuspid (valve) insufficiency; Z95.0 Presence of cardiac pacemaker; I25.2 Old myocardial infarction; Z86.73 Personal history of transient ischemic attack (TIA), and cerebral infarction without residual deficits; Z98.890 Other specified postprocedural states; Z95.1 Presence of aortocoronary bypass graft; Z79.899 Other long term (current) drug therapy; Z79.84 Long term (current) use of oral hypoglycemic drugs; Z79.01 Long term (current) use of anticoagulants
CPT/HCPCS: 36415; 36416; 71045; 78452; 80048; 80053; 80061; 80162; 83036; 83690; 83735; 83880; 84443; 84484; 85025; 90471; 90653; 90677; 93005; 93010; 93017; 93306; 96374; 96375; 96376; A9502; G0009; G0378; J1940; J2785; J3475